=== PATIENT | male | born 1960 | race Caucasian/White ===

== ENCOUNTER → 2017-06-27 | Outpatient (CLI) | payer OTHER ==
[~2017-06-27] MED LIST: IOPAMIDOL (ISOVUE 370) 100 ML BTL IV ONE
== END ==
LOC: FIMAGING 08:48
PROVIDERS: ATTEND Internal Medicine Cardiovascular Disease
DX: I71.2 Thoracic aortic aneurysm, without rupture (principal); I48.91 Unspecified atrial fibrillation; Q23.1 Congenital insufficiency of aortic valve
CPT/HCPCS: Q9967

== ENCOUNTER 2018-04-02 11:14 | Inpatient (IN) | payer OTHER ==
[2018-04-02] MEDS ORDERED: ASPIRIN EC 325 MG TAB PO ONE ×2 (11:20→12:09)
[2018-04-02] MEDS ORDERED: NS 1,000 ML IV ONE (11:20)
[2018-04-02] MEDS ORDERED: diphenhydrAMINE 25 MG CAP PO ONE ×2 (11:20→12:09)
[2018-04-02] MEDS ORDERED: DIAZEPAM 5 MG TAB PO ONE (11:20)
[2018-04-02] MEDS ORDERED: FAMOTIDINE 20 MG TAB PO ONE (11:20)
[2018-04-02] MEDS ORDERED: fentaNYL 100 MCG/2 ML INJ ONE (12:01)
[2018-04-02] MEDS ORDERED: LIDOCAINE 1% 300 MG/30 ML SDV ONE (12:01)
[2018-04-02] MEDS ORDERED: MIDAZOLAM 2 MG/2 ML VIAL ONE (12:02)
[2018-04-02] MEDS ORDERED: IOPAMIDOL (ISOVUE-370) 150 ML BTL IV ONE (12:02)
[2018-04-02] MEDS ORDERED: FAMOTIDINE 20 MG TAB ONE (12:09)
[2018-04-02] MEDS ORDERED: DIAZEPAM 5 MG TAB ONE (12:09)
--- NOTE | 2018-04-02 12:25 | PDGENHP ---
History and Physical - Chief Complaint preop open heart surgery - History of Present Illness 57 yo male with lifestyle limiting atrial fibrillation, a BAV, moderate AI/, and an aneurysmal ascending aorta, admitted in advance of Hernandez-Maze IV with AVR, and asc ao replacement to complete surgical risk stratification. Notes increasing burden of AF refractory to catheter based ablations, electrical cardioversions and antiarrhythmic therapy with onset of fatigue and exertional dyspnea over the past few year. Ablations seemingly compl by PVCs. Can no longer exercise and has had to modify his pace to complete ADLs. Prone to "cankles". No CPs, wt gain > 5 lbs, abd discomfort, PND, orthopnea or presyncope. Chronically anticoagulated on Coumadin for burden of AF ([id number] score of 0 ). Stopped coumadin on 03/27 and has been on lovenox bridge. History Information - Allergies/Home Medication List Allergies/Adverse Reactions: No Known Allergies Allergy (Verified 02/08/18 11:50) Home Medications: Atorvastatin Calcium [Lipitor 20 mg (*)] 20 mg PO DAILY 02/08/18 [Last Taken 03/12 08:00] Herbals/Supplements -Info Only 1 ea PO DAILY 03/27/18 [Last Taken 03/29/18 08:00 ] Sotalol HCl [Betapace 80 MG (*)] 80 mg PO BID 03/27/18 [Last Taken 04/02/18 08: 00] Warfarin Sodium [Coumadin 2.5MG (*)] 2.5 mg PO MOWEFRSA 03/27/18 [Last Taken 09/09 08:00] Warfarin Sodium [Coumadin 5MG (*)] 5 mg PO SUTUTH 03/27/18 [Last Taken 03/26/18 08:00] Lovenox 100 MG (*) 100 mg PO BID 04/02/18 [Last Taken 04/01/18 08:00] I have personally reviewed and updated: medical history, social history, surgical history - Past Medical History Additional medical history: chronic sinusitis - Surgical History Reports: ablation (x2) - Social History Smoking Status: Former smoker Review of Systems Review of Systems: Constitutional: Reports: recent illness (sinus flare treated with clarithromycin ) EENMT: Reports: no symptoms Cardiac: Reports: no symptoms (at rest) Respiratory: Reports: no symptoms (at rest) Gastrointestinal: Reports: other (no difficulty swallowing pills) Genitourinary: Reports: no symptoms Muscolosketal: Reports: no symptoms Skin: Reports: no symptoms Neurological: Reports: no symptoms Hematologic/Lymphatic: Reports: no symptoms Physical Exam Physical Exam: Constitutional: no apparent distress, appears nourished Eyes: anicteric sclera, other (PER) Ears, Nose, Mouth, Throat: moist mucous membranes, hearing normal, other (no visible dental disrepair) Cardiovascular: systolic murmur (faint ), irregularly irregular, edema (trace dependent) Peripheral Pulses: 2+: dorsalis-pedis (R), dorsalis-pedis (L) Respiratory: no respiratory distress, clear to auscultation Gastrointestinal: normoactive bowel sounds, soft, non-tender abdomen Genitourinary: no bladder fullness Skin: warm, normal color, no rashes or abrasions Musculoskeletal: other (symmetric tone) Neurologic: AAOx3 Psychiatric: interacting appropriately, not anxious Lab Data & Imaging Review 04/02/18 11:20 04/02/18 12:00 Type and screen, HgbA1c pending Imaging Review: CTA Jun 2017: Nl heart size, no pulm nodules or lymphadenopathy, 3.5 cm ao root , 4.5 cm ascending aorta maximally dilated at level of PA, no arch vessel involvement Visualized and Interpreted EKG results: Yes EKG Interpretation: Positive for: other (AF 60s) Assessment & Plan Assessment: Longstanding persistent atrial fibrillation Chronic anticoagulation BAV with moderate /AI and aneurysmal asc aorta Plan: Left and right heart cath Cardiac surgery in am Consents after new data reviewed
[2018-04-02 12:48] LABS: INR 1.11 (0.83-1.16); PROTIME(PATIENT) 14.5 SEC (12.0-15.0)
[2018-04-02 12:53] LABS: PLATELET COUNT 167 10^3/uL (150-400)
--- NOTE | 2018-04-02 13:36 | PDHPUP ---
History & Physical Update H&P update statement: This history and physical update is based on an assessment of the patient which was completed after admission or registration (within 24 hours), but prior to the surgery/procedure. H&P update: H&P reviewed & patient examined, no change in patient's condition since H&P completed
--- NOTE | 2018-04-02 13:36 | PDPROPOC ---
Sedation Plan of Care Sedation Plan of Care: mental status noted, patient educated of risks, benefits , alternatives, patient can tolerate sedation ASA Classification: ASA 2 Planned drugs: fentanyl, midazolam Mallampati Score: Class 2 Mallampati Reference Image: Patient passed 3-3-2 rule?: Yes
[2018-04-02] MEDS ORDERED: HYDROCODONE/APAP 5/325 TAB PO PRN (14:24)
[2018-04-02] MEDS ORDERED: OXYCODONE/APAP 5/325 TAB PO PRN (14:24)
[2018-04-02] MEDS ORDERED: ATROPINE SULFATE 1 MG/10 ML SYR IVP PRN (14:24)
[2018-04-02] MEDS ORDERED: NITROGLYCERIN 0.4 MG BTL SL PRN (14:24)
[2018-04-02] MEDS ORDERED: ONDANSETRON 4 MG/2 ML VIAL IVP PRN (14:24)
--- NOTE | 2018-04-02 15:18 | CPIP ---
DATE OF PROCEDURE: 04/02/2018 INDICATION FOR PROCEDURE: Preoperative catheterization. PROCEDURE: 1. Nonselective right groin sheathogram. 2. 7-Somali sheath right femoral vein. 3. Right heart catheterization with a [place] catheter. 4. Bilateral selective coronary angiography. HISTORY: This is a 57-year-old male with a history of dilated aortic root and bicuspid aortic valve. The patient is scheduled for surgical repair with Dr. Strong on 04/03/2018. The patient presents to [facility] for preoperative cardiac catheterization. DESCRIPTION OF PROCEDURE: After informed consent, he was brought to [facility]. The right groin was preppe d and draped in sterile fashion. Using lidocaine, a short 6-Somali sheath was introduced in the [facility] t common femoral artery, a 7-Somali sheath was introduced in the right common femoral vein. [place] catheter was advanced. Wedge pressure was mean of 17, A-wave ____18 with V-wave 21, PA pressure s ystolic 45, diastolic 23, mean of 33, RV pressure is 50, diastolic 2, end of 12, RA pressure was mean of 12, V-wave 14, cardiac output was measured to be 6.0 by Javier with a cardiac index 2.7. AO sat wa s 96%. PA sat was 72%. At this time, the [place]-Yelena catheter was removed. The JL4 catheter was adva nced to the left coronary artery. Images of the left coronary artery revealed normal left main and l eft circumflex. There was a ramus intermedius which was small to medium. Left circumflex artery had an AV groove circ, and terminated to a bifurcating marginal artery which was healthy and free of dis ease. The LAD was a long vessel which wrapped around the apex. The LAD gave off small diagonal juana lonnie in the midbody, which were healthy and free of disease. The LAD itself was healthy and free of disease. After the images were obtained, the JL4 catheter was removed. The JR4 catheter was advance d to the right coronary artery. Images of the right coronary artery revealed normal ostia of the RCA , normal os prox, RPDA and RPLUS. After these images were obtained, the JR4 catheter was removed. T he right groin was closed with manual pressure. Patient tolerated the procedure well with no complic ations. IMPRESSION: 1. Essentially normal coronary arteries. 2. Mild pulmonary hypertension. 3. Normal cardiac output. PLAN: The patient will be admitted to the [facility] Surgery Service for open heart surgery within the next 24 hours. /[id number]/MODL
--- NOTE | 2018-04-02 15:45 | PDMN ---
Medical Necessity Medical necessity: Pt meets inpt criteria per MD order and [facility] S-290, Cardiac Valve Replacement or Repair, CPT 02465, 5 days, [facility] inpt only list and [facility] S- 140, Aortic Aneurysm, Thoracic, Repair with Graft, CPT 50759, [facility] inpt only list. 57 y/o w/hx longstanding persistent afib, BAV w/mod /AI and aneurysmal asc aorta admitted for heart cath today prior to planned cardiac surg above tomorrow AM, anticipate>2MN for cardiac surgeries/post-op care.
--- NOTE | 2018-04-02 16:44 | CPEKG ---
Test Reason : OPEN Blood Pressure : / mmHG Vent. Rate : 066 BPM Atrial Rate : 000 BPM P-R Int : 064 ms QRS Dur : 095 ms QT Int : 475 ms P-R-T Axes : 000 024 016 degrees QTc Int : 498 ms Atrial fibrillation Ventricular premature complex Atrial fibrillation is new in comparison to prior ECG Confirmed by Giancarlo Sky ([id number]) on 04/02/2018 4:43:31 PM Referred By: Confirmed By:Giancarlo Sky
[2018-04-02] MEDS ORDERED: hydrALAZINE 20 MG/ML VIAL IVP PRN (18:45)
[2018-04-02] MEDS: HEPARIN 5,000 UNIT/0.5 ML INJ SC SCH (20:54)
[2018-04-02] MEDS: SENNOSIDES/DOCUSATE SODIUM TAB PO SCH (20:54)
[2018-04-02] MEDS: SOTALOL HCL 80 MG TAB PO SCH (20:54)
[2018-04-02] MEDS ORDERED: CHLORHEXIDINE GLUC HIBICLENS 118 ML BTL TP SCH (21:00)
[2018-04-02] MEDS: MUPIROCIN 2% 22 GM OINT NS SCH (21:40)
[2018-04-03 04:20] LABS: INR 1.15 (0.83-1.16); PROTIME(PATIENT) 14.9 SEC (12.0-15.0)
[2018-04-03] MEDS ORDERED: AMINOCAPROIC ACID 5 GM/20 ML VIAL IV ONE (06:00)
[2018-04-03] MEDS ORDERED: NOREPINEPHRINE BITARTRATE 16 MG in NS 250 ML IV ONE (06:00)
[2018-04-03] MEDS ORDERED: PHENYLEPHRINE HCL 50 MG in NS 250 ML IV ONE (06:00)
[2018-04-03] MEDS ORDERED: ceFAZolin 2 GM/DEXTROSE 100 ML IV ONE (06:00)
[2018-04-03] MEDS ORDERED: SODIUM BICARBONATE 20 MEQ, LIDOCAINE 1% 10 ML in NORMOSOL-R 1,000 ML MISC ONE (06:00)
[2018-04-03] MEDS ORDERED: INSULIN REGULAR HUMAN 100 UNIT in NS 100 ML IV ONE (06:00)
[2018-04-03] MEDS ORDERED: niCARdipine/NACL 200 ML IV ONE (06:00)
[2018-04-03] MEDS ORDERED: CITRATE DEXTROSE SOLN 500 ML BAG MISC ONE (06:00)
[2018-04-03] MEDS ORDERED: MANNITOL 25% 12.5 GM/50 ML VIAL IVP ONE (06:00)
[2018-04-03] MEDS: MUPIROCIN 2% 22 GM OINT NS SCH ×2 (06:11→21:14)
[2018-04-03] MEDS ORDERED: LR 1,000 ML IV ONE (06:12)
[2018-04-03] MEDS ORDERED: PROTAMINE SULFATE 50 MG/5 ML VIAL IVP ONE (06:48)
[2018-04-03] MEDS ORDERED: MILRINONE/DEXTROSE/100 ML BAG IV ONE (06:48)
[2018-04-03] MEDS ORDERED: CALCIUM CHLORIDE 1 GM/10 ML INJ ONE ×3 (06:48→06:50)
[2018-04-03] MEDS ORDERED: HEPARIN 10,000 UNIT/10 ML MDV (1,000 UNIT/ML) ONE ×2 (06:49→06:51)
[2018-04-03] MEDS ORDERED: DOPamine/DEXTROSE 400 MG/250 ML BAG IV ONE (06:49)
[2018-04-03] MEDS ORDERED: AMIODARONE HCL 150 MG/3 ML VIAL ONE ×2 (06:49→06:51)
[2018-04-03] MEDS ORDERED: niCARdipine/NACL/200 ML BAG IV ONE (06:49)
[2018-04-03] MEDS ORDERED: NA BICARBONATE 50 MEQ/50 ML VIAL ONE (06:49)
[2018-04-03] MEDS ORDERED: ADENOSINE 6 MG/2 ML VIAL ONE (06:49)
[2018-04-03] MEDS ORDERED: ceFAZolin 1 GM VIAL ONE (06:50)
[2018-04-03] MEDS ORDERED: NITROGLYCERIN/D5W 50 MG/250 ML BOTTLE IV ONE (06:50)
[2018-04-03] MEDS ORDERED: LIDOCAINE 2% 100 MG/5 ML SYR ONE (06:50)
[2018-04-03] MEDS ORDERED: ALBUMIN 5% 250 ML BOTTLE IV ONE ×2 (06:50→10:27)
[2018-04-03] MEDS ORDERED: CITRATE DEXTROSE SOLN 500 ML BAG ONE (06:51)
[2018-04-03] MEDS ORDERED: MAGNESIUM SULFATE 1 GM/2 ML VIAL ONE (06:51)
[2018-04-03] MEDS ORDERED: methylPREDNISolone SOD SUCC 1 GM/8 ML VIAL ONE (06:51)
[2018-04-03] MEDS ORDERED: MIDAZOLAM 2 MG/2 ML VIAL IVP ONE (06:53)
[2018-04-03] MEDS ORDERED: MINERAL OIL 10 ML VIAL ONE (06:59)
--- NOTE | 2018-04-03 07:01 | PDANEPAE ---
ANE History of Present Illness maze,avr, asc aortic aneurysm ANE Past Medical History - Cardiovascular History Hx Hypertension: No Hx Arrhythmias: Yes Hx Chest Pain: No Hx Coronary Artery / Peripheral Vascular Disease: No Hx CHF / Valvular Disease: Yes Hx Palpitations: No Cardiovascular History Comment: aorta aneurysm. afib. bicuspid aortic valve. hx of cardioversions x2. hx of cardiac ablations x2. followed by [facility] - Pulmonary History Hx COPD: No Hx Asthma/Reactive Airway Disease: No Hx Recent Upper Respiratory Infection: No Hx Oxygen in Use at Home: No Hx Sleep Apnea: Yes Sleep Apnea Screening Result - Last Documented: Positive Pulmonary History Comment: donal positive uses cpap- instructed pt to bring to hospital - Neurologic History Hx Cerebrovascular Accident: No Hx Seizures: No Hx Dementia: No - Endocrine History Hx Diabetes: No Hypothyroid: No Hyperthyroid: No Obesity: mild - Renal History Hx Renal Disorders: No - Liver History Hx Hepatic Disorders: No - Neurological & Psychiatric Hx Hx Neurological and Psychiatric Disorders: No - Cancer History Hx Cancer: Yes Cancer History Comment: testicular ca- removal of testicle 8 weeks of radiation 2002 - Congenital Disorder History Hx Congenital Disorders: No - GI History Hx Gastrointestinal Disorders: No - Other Health History Other Health History: wears glasses - Chronic Pain History Chronic Pain: No - Surgical History Prior Surgeries: cardioversion x2- last being 09/17/13. right ankle surgery. bilateral RTC repairs. cardiac ablations x2. bilateral bunionectomies. testicle removed d/t ca 2002 ANE Review of Systems Review of Systems: - Exercise capacity Exercise capacity: >=4 METS METS (RN): 4 METS ANE Patient History - Allergies Allergies/Adverse Reactions: No Known Allergies Allergy (Verified 02/08/18 11:50) - Home Medications Home medications: home medication list seen and reviewed Home Medications: Atorvastatin Calcium [Lipitor 20 mg (*)] 20 mg PO DAILY 02/08/18 [Last Taken 03/12 08:00] Herbals/Supplements -Info Only 1 ea PO DAILY 03/27/18 [Last Taken 03/29/18 08:00 ] Sotalol HCl [Betapace 80 MG (*)] 80 mg PO BID 03/27/18 [Last Taken 04/02/18 08: 00] Warfarin Sodium [Coumadin 2.5MG (*)] 2.5 mg PO MOWEFRSA 03/27/18 [Last Taken 09/09 08:00] Warfarin Sodium [Coumadin 5MG (*)] 5 mg PO SUTUTH 03/27/18 [Last Taken 03/26/18 08:00] Enoxaparin [Lovenox 100 MG (*)] 100 mg SQ Q12H 04/02/18 [Last Taken 04/01/18 08: 00] - NPO status NPO Status: no food or drink >8 hours NPO Since - Liquids (Date): 04/03/18 NPO Since - Liquids (Time): 00:00 NPO Since - Solids (Date): 04/03/18 NPO Since - Solids (Time): 00:00 - Smoking Hx Smoking Status: Never smoked - Family Anes Hx Family Hx Anesthesia Complications: none ANE Labs/Vital Signs - Labs Result Diagrams: 04/02/18 11:20 04/03/18 03:11 - Vital Signs Blood Pressure: 142/94 Heart Rate: 71 Respiratory Rate: 16 O2 Sat (%): 95 Height: 177.8 cm Weight: 103.7 kg ANE Physical Exam - Airway Mallampati Score: Class 2 Mouth exam: normal dental/mouth exam - Pulmonary Pulmonary: no respiratory distress - Cardiovascular Cardiovascular: regular rate and rhythym - ASA Status ASA Status: III ANE Anesthesia Plan Anesthesia Plan: general endotracheal anesthesia Lines/Monitors: arterial line, central line, MARSHALL
[2018-04-03] MEDS ORDERED: SUCCINYLCHOLINE CHLORIDE 200 MG/10 ML SYR IVP ONE (07:06)
[2018-04-03] MEDS ORDERED: EPINEPHrine 1 MG/ML INJ ONE (07:06)
[2018-04-03] MEDS ORDERED: ROCURONIUM 100 MG/10 ML VIAL ONE (07:06)
[2018-04-03] MEDS ORDERED: PHENYLEPHRINE 10 MG/ML SDV ONE (07:06)
[2018-04-03] MEDS ORDERED: LIDOCAINE 2% 2 ML INJ ONE ×3 (07:07)
[2018-04-03] MEDS ORDERED: fentaNYL 250 MCG/5 ML INJ ONE ×2 (07:08)
[2018-04-03] MEDS ORDERED: PROPOFOL 200 MG/20 ML VIAL ONE (07:08)
[2018-04-03] MEDS ORDERED: MIDAZOLAM 2 MG/2 ML VIAL ONE (07:19)
[2018-04-03] MEDS ORDERED: DEXMEDETOMIDINE HCL 400 MCG in NS 100 ML IV SCH (09:00)
[2018-04-03] MEDS ORDERED: ROCURONIUM 50 MG/5 ML VIAL ONE (10:12)
[2018-04-03] MEDS: SENNOSIDES/DOCUSATE SODIUM TAB PO SCH ×2 (11:24→21:14)
[2018-04-03] MEDS: SOTALOL HCL 80 MG TAB PO SCH (11:25)
[2018-04-03] MEDS: HEPARIN 5,000 UNIT/0.5 ML INJ SC SCH (11:25)
[2018-04-03] MEDS ORDERED: CEPACOL LOZENGE PO PRN (12:50)
[2018-04-03] MEDS ORDERED: METOCLOPRAMIDE 10 MG/2 ML VIAL IVP PRN (12:50)
[2018-04-03] MEDS ORDERED: POTASSIUM Cl (KCl) 50 ML IV PRN (12:50)
[2018-04-03] MEDS ORDERED: ACETAMINOPHEN 650 MG SUPP PR PRN (12:50)
[2018-04-03] MEDS ORDERED: ONDANSETRON 4 MG/2 ML VIAL IVP PRN (12:50)
[2018-04-03] MEDS ORDERED: MEPERIDINE 25 MG/0.5 ML AMP IVP PRN (12:50)
[2018-04-03] MEDS ORDERED: LACTULOSE 20 GM/30 ML UDCUP PO PRN (12:50)
[2018-04-03] MEDS ORDERED: ONDANSETRON DISINTEGRATING 4 MG TAB PO PRN (12:50)
[2018-04-03] MEDS ORDERED: MAGNESIUM HYDROXIDE 30 ML UDCUP PO PRN (12:50)
[2018-04-03] MEDS ORDERED: PANTOPRAZOLE SODIUM 40 MG VIAL IVP ONE (12:50)
[2018-04-03] MEDS ORDERED: POLYETHYLENE GLYCOL 3350 17 GM PKT PO PRN (12:50)
[2018-04-03] MEDS ORDERED: D50W 25 GM/50 ML SYR IVP PRN (12:50)
[2018-04-03] MEDS ORDERED: BISACODYL 10 MG SUPP PR PRN (12:50)
[2018-04-03] MEDS ORDERED: fentaNYL 100 MCG/2 ML INJ IVP PRN (12:50)
[2018-04-03] MEDS ORDERED: SODIUM CL NASAL 45 ML BTL EACHNARE PRN (12:50)
[2018-04-03] MEDS ORDERED: NS 1,000 ML IV SCH (13:00)
[2018-04-03] MEDS ORDERED: niCARdipine/NACL 200 ML IV SCH (13:00)
[2018-04-03] MEDS ORDERED: NALOXONE HCL 0.4 MG/ML INJ IVP PRN (13:09)
--- NOTE | 2018-04-03 13:09 | POSTANESTH ---
Post Anesthetic Evaluation Cardiovascular Status: Normal, Stable, Tx Hyper/Hypo-tension Respiratory Status: Other, See Comment (stable on vent) Level of Consciousness/Mental Status: Mildly Sleepy, Arousable, Other, See Comment (sedated with precedex) Pain Control: Adequate, Prn Tx Ordered Nausea/Vomiting Control: Adequate, Prn Tx Ordered Complications Possibly Related to Anesthesia: None Noted
[2018-04-03] MEDS: ALBUMIN 5% 250 ML IV PRN ×4 (13:38→14:46)
[2018-04-03] MEDS: ceFAZolin 2 GM/DEXTROSE 100 ML IV SCH ×2 (14:40→21:14)
[2018-04-03] MEDS: INSULIN REGULAR HUMAN 100 UNIT in NS 100 ML IV SCH ×2 (15:00→20:45)
--- NOTE | 2018-04-03 15:28 | GOP ---
DATE OF OPERATION: 04/03/2018 SURGEON: Mike Strong DO SALES DIRECTOR: Sang. ANESTHESIOLOGIST: Nabeel. PREOPERATIVE DIAGNOSIS: 1. Moderate aortic stenosis. 2. Ascending aortic aneurysm. 3. Long-standing persistent atrial fibrillation. POSTOPERATIVE DIAGNOSIS: 1. Moderate aortic stenosis. 2. Ascending aortic aneurysm. 3. Long-standing persistent atrial fibrillation. PROCEDURE PERFORMED: 1. Hernandez-Maze 4 with biatrial lesions performed with sensing and testing with atrial clip application to the left atrial appendage. 2. Aortic valve replacement with #23 Inspiris bioprosthesis. 3. Replace ascending aorta with a 24 Hemashield graft. FINDINGS: DESCRIPTION OF PROCEDURE: The patient was brought to the operating room, intubated. Monitoring line s were placed. He was prepped and draped in sterile classical manner. Time-out was confirmed with [facility] team. Intraoperative MARSHALL confirmed preoperative findings. A sternotomy was performed. He was heparinized, cannulated in the transverse arch and bicaval cannul as with tapes. We then placed a retrograde catheter and an antegrade cardioplegic catheter. We then dissected the fat off the interatrial groove on the right pulmonary venous system down to bare muscl e. We then performed sensing. The patient had both entrance and exit block in both pulmonary veins. Despite this, we encircled the right pulmonary vein and did 3 lesion sets overlapping with multiple ablations per lesion set, with the final of those sets being 5 seconds or less. We then retested an d again confirmed entrance and exit block. The patient had been cardioverted to sinus prior to that it should be noted. We then went on cardiopulmonary bypass and encircled the left pulmonary veins and repeated the same p rocedure. Patient was noted to have entrance and exit block both before and after multiple ablations . We then marked the terminus of the circ and right coronaries in the coronary sinus for later cryoa blation. We then arrested the heart, excised the tip of the left atrial appendage and placed the rad iofrequency catheter across into the right superior pulmonary vein with multiple lesion sets less heather n 5 seconds performed. We then placed an atrial clip across the base of the appendage and proceeded with opening the left at rium through the right superior pulmonary vein. I extended the incisions almost completely over to t left side and completed those roof and floor lesions with radiofrequency overlapping the left PVI. I then performed cryo externally and internally across the coronary sinus and isthmus of the mitral valve overlapping them perfectly with 3 minutes each. I then closed the left atrium, put the LV sump in. I then excised the ascending aorta from sinotubul ar junction to the right innominate artery at the base of the clamp. It was a true bicuspid valve. It was excised. It was debrided. We then sized him for a 23 Inspiris valve, which was sutured with interrupted 2-0 Tycron pledgeted mattress sutures utilizing Cor-Knots. We then sutured a 24 mm Hemas hield graft both distally and proximally with a continuous running 3-0 Prolene, reinforced in several sites, as well as external BioGlue with the suction off. I then put an aortic vent back into the gr aft and administered antegrade cardioplegia with no evidence of leak on the anastomoses. Rewarming h ad been begun. Patient was then placed in Trendelenburg. Cross-clamp was removed with suction on the ascending and LV vent. Meanwhile, we secured cable tapes and perform all radiofrequency lesion sets on the right a trium and an isthmus lesion with cryo at 2 o'clock. The right atrium was closed in standard fashion. Caval tapes were removed. The patient was then weaned after air was removed from bypass without di fficulty. Intraoperative MARSHALL revealed good valvular function without any regurgitation. Biventricul ar function was well preserved. The heparin was reversed with protamine. The cannula was removed while heparin was being administere d and was found to have clot on the end of the aortic cannula. This was hard to explain since there should have been no retrograde blood back into the aortic cannula since it was clamped at the pump. Hemostasis was obtained. The pericardium and thymic fat were closed with 2 ventricular pacing wires and 2 mediastinal drains. The sternum was closed in standard fashion. The patient was returned to ICU where he awoke appropriately and was extubated briefly after re-arriv ing the ICU with good pedal pulses and no evidence of neuro deficit. /[id number]/MODL
[2018-04-03] MEDS: NOREPINEPHRINE BITARTRATE 16 MG in NS 250 ML IV SCH ×2 (15:30→20:46)
[2018-04-03] MEDS ORDERED: NOREPINEPHRINE/NS 500 ML IV SCH (16:00)
--- NOTE | 2018-04-03 17:15 | GCON ---
PULMONARY/CRITICAL CARE CONSULTATION. DATE OF CONSULTATION: 04/03/2018 REFERRING PHYSICIAN: Mike Strong DO REASON FOR REFERRAL: Evaluation and management of postoperative respiratory failure and obstructive sleep apnea. HISTORY: The patient is a 57-year-old male with a history of sleep apnea treated with CPAP, as well as chronic atrial fibrillation, and bicuspid aortic valve who is referred to Dr. Strong for considerat ion of Maze procedure, as well as replacement of the aortic valve and his dilated ascending aorta. Ashely edmonds underwent the procedure today and his intraoperative course was unremarkable. He has remained intu bated postoperatively, in part due to variable blood pressure that has been addressed with increasing the heart rate on his pacemaker, as well as norepinephrine, which is currently being titrated down. PAST MEDICAL HISTORY: Obstructive sleep apnea. The patient had a home sleep test in 2014, which courtney wed an apnea-hypopnea index of 6.4. He has been treated with CPAP since then, apparently at a pressu re of 7 cm of water. He is followed at the [facility]. He reports excellent complianc e with CPAP HOME MEDICATIONS: Atorvastatin, sotalol, warfarin, Lovenox. ALLERGIES: None. SOCIAL HISTORY: The patient is a former smoker. FAMILY HISTORY: Unremarkable. REVIEW OF SYSTEMS: A 10-point review of systems is unobtainable as the patient is intubated. PHYSICAL EXAMINATION: GENERAL: The patient is sedated, but awakes to voice and follows simple comma nds. VITAL SIGNS: Blood pressure is 103/71, with a heart rate of 94. He is afebrile. Oxygen satur ations are 100% on CPAP at 40% oxygen. HEENT: Normocephalic and atraumatic. No icterus. NECK: No JVD. Trachea is midline. CHEST: Clear to auscultation. CARDIAC: Regular rate and rhythm without murmur. ABDOMEN: Soft, nontender. Bowel sounds are present. EXTREMITIES: No clubbing, cyanosis, or edema. NEURO: The patient is sleepy, but arousable and follows simple commands. He has no fredis s motor or sensory deficits. LABORATORY/IMAGING: Chemistry group is unremarkable. CBC is normal. Postoperative chest x-ray shows some cardiomegaly and mild atelectasis. Images were reviewed by me. ASSESSMENT: 1. Status post open heart surgery with aortic valve replacement, aortic root replacement, and a maze procedure. He has doing well postoperatively with improved blood pressure after his pacemaker was i ncreased. His norepinephrine is being titrated down. 2. Postoperative respiratory failure. The patient is doing well now with good oxygenation on 40% ox ygen. 3. Obstructive sleep apnea. This is mild. The patient is treated with CPAP, which he brought to [facility]. 4. Atrial fibrillation. The patient is currently in a paced rhythm. RECOMMENDATION: 1. Follow blood sugars. I do not anticipate these will be elevated significantly given the absence of diabetes preoperatively. 2. Extubate once the patient is more awake and hemodynamically stable. 3. Use CPAP with sleep once the patient is extubated. /[id number]/MODL
[2018-04-03] MEDS: KETOROLAC 30 MG/1 ML SDV IVP SCH (20:29)
[2018-04-04] MEDS: KETOROLAC 30 MG/1 ML SDV IVP SCH ×2 (01:39→08:34)
[2018-04-04 04:25] LABS: PLATELET COUNT 75 10^3/uL (150-400)
[2018-04-04 04:52] LABS: INR 1.4 (0.83-1.16); PROTIME(PATIENT) 17.3 SEC (12.0-15.0)
[2018-04-04] MEDS: ceFAZolin 2 GM/DEXTROSE 100 ML IV SCH ×3 (05:58→22:34)
[2018-04-04] MEDS ORDERED: HEPARIN 5,000 UNIT/0.5 ML INJ SC SCH (06:00)
--- NOTE | 2018-04-04 07:09 | SOAPPROG ---
SOAP Progress Note Assessment/Plan: POD #1: AVR with #23 Inspiris Resilia bioprosthesis, ascending aorta replacement with #23 Hemashield graft, Hernandez-Maze IV with AtriClip exclusion of LEYDI Moderate /AI/BAV with asc ao aneurysm s/p AVR/asc ao replacement - ASA for AV thromboprophylaxis - AL/FC out, CT to bulb suction Long standing persistent atrial fibrillation s/p CM 4 - JR in 40s, continue CROP PICKER at 90 - Will restart Coumadin for thromboprophylaxis - Sotalol to be discontinued Acute blood loss anemia with coagulopathy - Stable s/p 1U platelet, 1U PRBC - Monitor DVT prophylaxis - Heparin SQ until INR therapeutic/SCDs Subjective: Pain well-controlled. Denies SOB. Objective: Vital Signs Temp Pulse Resp BP Pulse Ox 37.1 C 90 12 103/63 96 04/04/18 04:00 04/04/18 06:00 04/04/18 06:00 04/04/18 06:00 04/04/18 06:00 Laboratory Results 04/04/18 04:00 04/04/18 04:00 04/03/18 04/04/18 04/05/18 05:59 05:59 05:59 Intake Total 1450 2050 Output Total 350 1585 Balance 1100 465 PT 17.3 SEC (12.0-15.0) H 04/04/18 04:00 INR 1.40 (0.83-1.16) H 04/04/18 04:00 Physical Exam - Physical Exam General Appearance: WD/WN, alert, no apparent distress EENT: No scleral icterus (R), No scleral icterus (L) Neck: normal inspection Respiratory: No respiratory distress Cardiac/Chest: bradycardia Peripheral Pulses: 2+: dorsalis-pedis (R), dorsalis-pedis (L) Abdomen: non-tender, soft, No distended Skin: normal color, warm/dry Extremities: No pedal edema Neuro/Psych: no motor/sensory deficits, alert, normal mood/affect, oriented x 3 , No aphasia, No facial droop, No motor weakness, No sensory deficit, No cognition abnormalities, No speech abnormalities ICD10 Worksheet Patient Problems: Problems Problem Status Onset Acute blood loss anemia Acute S/P aortic aneurysm repair Acute S/P aortic valve replacement Acute Status post ablation of atrial fibrillation Acute Aortic valve stenosis with insufficiency Chronic Ascending aortic aneurysm Chronic Bicuspid aortic valve Chronic Chronic anticoagulation Chronic Atrial fibrillation and flutter Chronic
[2018-04-04] MEDS: ASPIRIN 81 MG CHEWABLE TAB PO SCH (08:34)
[2018-04-04] MEDS: PANTOPRAZOLE SODIUM 40 MG TAB PO SCH (08:34)
[2018-04-04] MEDS: MUPIROCIN 2% 22 GM OINT NS SCH ×2 (08:35→22:39)
[2018-04-04] MEDS: SENNOSIDES/DOCUSATE SODIUM TAB PO SCH ×2 (08:35→20:45)
[2018-04-04] MEDS: ACETAMINOPHEN 325 MG TAB PO PRN ×2 (10:52→18:37)
--- NOTE | 2018-04-04 11:40 | ASMTCMCOM ---
CM Note CM Note Notes: Pt is a 57 y/o man admitted for an open heart surgery w/ Dr. Strong. Therapies have been ordered and awaiting recommendations. Pulmonology have been consulted. Needs are TBD at this time. CM to follow. Plan: TBD Date Signed: 04/04/2018 11:39 AM Electronically Signed By:SHELLY Berkowitz
[2018-04-04] MEDS: KETOROLAC 30 MG/1 ML SDV IVP PRN ×2 (14:31→20:45)
[2018-04-04] MEDS ORDERED: ALBUMIN 5% 250 ML IV ONE (17:00)
[2018-04-05] MEDS: ACETAMINOPHEN 325 MG TAB PO PRN ×2 (02:11→09:40)
[2018-04-05] MEDS: KETOROLAC 30 MG/1 ML SDV IVP PRN ×2 (05:31→12:20)
[2018-04-05] MEDS: ceFAZolin 2 GM/DEXTROSE 100 ML IV SCH (05:39)
[2018-04-05 06:09] LABS: INR 1.3 (0.83-1.16); PROTIME(PATIENT) 16.4 SEC (12.0-15.0)
--- NOTE | 2018-04-05 06:42 | SOAPPROG ---
SOAP Progress Note Assessment/Plan: POD #2: AVR with #23 Inspiris Resilia bioprosthesis, ascending aorta replacement with #23 Hemashield graft, Hernandez-Maze IV with AtriClip exclusion of LEYDI Moderate /AI/BAV with asc ao aneurysm s/p AVR/asc ao replacement - ASA for AV thromboprophylaxis - AL/FC out, CT to bulb suction for another day - Post-op ECHO today Long standing persistent atrial fibrillation s/p CM 4 - JR in 40s, continue RN GASTROENTEROLOGY at 80 - Will restart Coumadin for thromboprophylaxis - Sotalol discontinued - BB/amiodarone as tolerated Acute blood loss anemia with coagulopathy, thrombocytopenia - Stable s/p 1U platelet, 1U PRBC - Monitor DVT prophylaxis - Heparin SQ (held for platelets < 100) until INR therapeutic/SCDs Subjective: Denies pain/SOB. Lightheaded when BP dips. Objective: Vital Signs Temp Pulse Resp BP Pulse Ox 36.9 C 80 13 101/61 95 04/05/18 04:00 04/05/18 04:00 04/05/18 04:00 04/05/18 04:00 04/05/18 04:00 Laboratory Results 04/05/18 05:40 04/05/18 05:40 04/04/18 04/05/18 04/06/18 05:59 05:59 05:59 Intake Total 2050 1500 Output Total 1585 1010 Balance 465 490 PT 16.4 SEC (12.0-15.0) H 04/05/18 05:40 INR 1.30 (0.83-1.16) H 04/05/18 05:40 Physical Exam - Physical Exam General Appearance: WD/WN, alert, no apparent distress EENT: No scleral icterus (R), No scleral icterus (L) Neck: normal inspection Respiratory: No respiratory distress Cardiac/Chest: bradycardia Abdomen: non-tender, soft, No distended Skin: normal color, warm/dry Extremities: No pedal edema Neuro/Psych: no motor/sensory deficits, alert, normal mood/affect, oriented x 3 ICD10 Worksheet Patient Problems: Problems Problem Status Onset Acute blood loss anemia Acute S/P aortic aneurysm repair Acute S/P aortic valve replacement Acute Status post ablation of atrial fibrillation Acute Aortic valve stenosis with insufficiency Chronic Ascending aortic aneurysm Chronic Bicuspid aortic valve Chronic Chronic anticoagulation Chronic Atrial fibrillation and flutter Chronic
[2018-04-05] MEDS: ASPIRIN 81 MG CHEWABLE TAB PO SCH (09:04)
[2018-04-05] MEDS: SENNOSIDES/DOCUSATE SODIUM TAB PO SCH (09:04)
[2018-04-05] MEDS: PANTOPRAZOLE SODIUM 40 MG TAB PO SCH (09:04)
[2018-04-05] MEDS: MUPIROCIN 2% 22 GM OINT NS SCH (09:07)
--- NOTE | 2018-04-05 09:22 | CPEKG ---
Test Reason : OPEN Blood Pressure : / mmHG Vent. Rate : 057 BPM Atrial Rate : 057 BPM P-R Int : 063 ms QRS Dur : 090 ms QT Int : 468 ms P-R-T Axes : 096 049 -16 degrees QTc Int : 456 ms Sinus rhythm versus junctional Short WI interval Minimal ST depression, anterolateral leads No clear "p" waves are noted and rate is suggestive of junctional rhythm Confirmed by Giancarlo Sky ([id number]) on 04/05/2018 9:22:01 AM Referred By: Confirmed By:Giancarlo Sky
--- NOTE | 2018-04-05 09:35 | ASMTCMCOM ---
CM Note CM Note Notes: Therapies have cleared pt to d/c home independent without any needs. Pt will d/c when medically stable and follow up with outpatient cardiac rehab. No other needs at this time. CM available for changes. Araseli: Independent Date Signed: 04/05/2018 09:34 AM Electronically Signed By:SHELLY Berkowitz
--- NOTE | 2018-04-05 10:37 | ECHO ---
[email or web address] [address] [address] Main: [phone] Fax: Transthoracic Echocardiogram Name: JERMAINE DEL VALLE MR#: [id number] Study Date: 04/05/2018 Study Time: 09:33 AM Date of : 1960 Age: 57 year(s) Height: 177.8 cm (70 in.) Weight: 108.86 kg (240 lb.) BSA: 2.26 m2 Gender: Male Examination: Echo Indication: AVR with #23 Inspiris Resilia bioprosthesis Image Quality: Technically Difficult Contrast: Requested by: Marvel Domínguez BP: 103 mmHg/61 mmHg Heart Rate: Rhythm: Indication: AVR with #23 Inspiris Resilia bioprosthesis Procedure Staff Real Estate Specialist: Maite Hawthorne RD Reading Physician: Casey Argueta MD Requesting Provider: Conclusions: Very limited imaging post op. Inadequate imaging available and unable to obtain valve gradients. Measurements: Chambers Valvular Assessment AV/MV Valvular Assessment TV/PV Normal Normal Normal Name Value Range Name Value Range Name Value Range Continued Measurements: Findings: Aortic Valve: The aortic valve is a bioprosthesis. The #23 Inspiris Resilia bioprosthesis. Not well seen . Pericardium: No pericardial effusion. Exam Comments: Very limited imaging post op. Inadequate imaging available and unable to obtain valve gradients. (No Signature Object) Patient: JERMAINE DEL VALLE Study Date: 04/05/2018 Page 1 of 1 09:33 AM [id number]
[2018-04-05] MEDS ORDERED: WARFARIN SODIUM 2.5 MG TAB PO ONE (16:00)
[2018-04-05] MEDS: HYDROCODONE/APAP 5/325 TAB PO PRN ×2 (20:00→21:10)
[2018-04-05] MEDS ORDERED: SENNOSIDES/DOCUSATE SODIUM TAB PO PRN (21:00)
[2018-04-06] MEDS: HYDROCODONE/APAP 5/325 TAB PO PRN ×4 (02:24→22:04)
[2018-04-06 06:45] LABS: INR 1.24 (0.83-1.16); PROTIME(PATIENT) 15.8 SEC (12.0-15.0)
[2018-04-06] MEDS: KETOROLAC 30 MG/1 ML SDV IVP PRN (07:51)
[2018-04-06] MEDS: PANTOPRAZOLE SODIUM 40 MG TAB PO SCH (08:14)
[2018-04-06] MEDS: ASPIRIN 81 MG CHEWABLE TAB PO SCH (08:14)
[2018-04-06] MEDS ORDERED: FUROSEMIDE 20 MG/2 ML VIAL IVP ONE (09:02)
[2018-04-06] MEDS ORDERED: POTASSIUM CL 20 MEQ TAB PO ONE (09:02)
--- NOTE | 2018-04-06 09:02 | SOAPPROG ---
SOAP Progress Note Assessment/Plan: Assessment: POD#3 Hernandez-Maze IV with AtriClip exclusion of LEYDI, AVR #23 Inspiris Resilia bioprosthesis, asc aorta replacement #23 Hemashield graft Long standing persistent atrial fibrillation s/p CM 4 - Postop rhythm consistently junctional (30s-40s). - Vpacer dependent. May need PPM. - Sotalol discontinued. Antinodals avoided. - Antithrombotic prophylaxis with Coumadin, target INR 2-3, duration as per Maze protocol. BAV with moderate /AI and aneurysmal asc ao s/p AVR/asc ao replacement - Thromboprophylaxis with baby ASA. Adjunctive Coumadin as per Maze. - Ant mediastinal drain out. - Persistently low SBPs, responsive to IVFs. Postpump vasoplegia +/- loss atrial kick suspected. Bedside echo neg for pericard effusion. Acute expected blood loss anemia with thrombocytopenia and mild coagulopathy - Corrected with 1u PRBC, 1u Plt and 1u FFP. - No evidence active bleeding. Addtl transfusion prn hemodynamic support. - Care with VTE prophylaxis while platelets depressed. Transition to Coumadin in progress. Plan: Remove post mediastinal drain. Decr VVI backup to 60. Tx 1u PRBC for SBP < 90. Start gentle diuresis. Stop scheduled toradol and switch to prn ibuprofen. Cont coumadin 2.5 mg daily. Cont inc activity as tolerated. Dispo - Timing for home once need for PPM clearer. 04/06/18 09:00 Subjective: Doing ok. More comfortable after chest tube removed yest. Improving mobility and IS. No acute concerns. Objective: Vital Signs Temp Pulse Resp BP Pulse Ox 36.9 C 80 20 100/71 95 04/06/18 07:48 04/06/18 07:48 04/06/18 07:48 04/06/18 07:48 04/06/18 07:48 Laboratory Results 04/06/18 06:25 04/06/18 06:25 04/05/18 04/06/18 04/07/18 05:59 05:59 05:59 Intake Total 1500 550 Output Total 1010 1230 80 Balance 490 -680 -80 PT 15.8 SEC (12.0-15.0) H 04/06/18 06:25 INR 1.24 (0.83-1.16) H 04/06/18 06:25 Remains pacer dependent with underlying JR 30s-40s. Intermittent SBPs 80s seemingly well tolerated, less frequent after FR relaxed. Balanced I/Os. +6 kg overall. Addtl 0.6 kg gain/24h. CTOP at removal criteria. INR yet to rise. CBC likely dilutional. Physical Exam - Physical Exam General Appearance: alert, no apparent distress Respiratory: lungs clear, other (lavon to bulb suction, serosang drainage) Cardiac/Chest: regular rate, rhythm (paced), other (Sternotomy CDI. Vwires intact) Abdomen: non-tender, soft Skin: warm/dry Extremities: swelling (1+ gen) ICD10 Worksheet Patient Problems: Problems Problem Status Onset Acute blood loss anemia Acute S/P aortic aneurysm repair Acute S/P aortic valve replacement Acute Status post ablation of atrial fibrillation Acute Aortic valve stenosis with insufficiency Chronic Ascending aortic aneurysm Chronic Bicuspid aortic valve Chronic Chronic anticoagulation Chronic Atrial fibrillation and flutter Chronic
[2018-04-06] MEDS ORDERED: IBUPROFEN 600 MG TAB PO PRN (14:00)
[2018-04-06] MEDS ORDERED: WARFARIN SODIUM 2.5 MG TAB PO ONE (16:00)
[2018-04-07] MEDS: HYDROCODONE/APAP 5/325 TAB PO PRN (06:23)
[2018-04-07 07:36] LABS: INR 1.19 (0.83-1.16); PROTIME(PATIENT) 15.3 SEC (12.0-15.0)
--- NOTE | 2018-04-07 08:27 | SOAPPROG ---
SOAP Progress Note Assessment/Plan: Assessment: POD#4 Hernandez-Maze IV with AtriClip exclusion of LEYDI, AVR #23 Inspiris Resilia bioprosthesis, asc aorta replacement #23 Hemashield graft Long standing persistent atrial fibrillation s/p CM 4 - Postop rhythm consistently junctional (30s-40s). - Vpacer dependent. No sig tello recovery off Sotalol. PPM planned in am. - Antithrombotic prophylaxis with Coumadin, target INR 2-3, duration as per Maze protocol. BAV with moderate /AI and aneurysmal asc ao s/p AVR/asc ao replacement - Thromboprophylaxis with baby ASA. Adjunctive Coumadin as per Maze. - Chest tubes out. - Persistently low SBPs, responsive to IVFs. Postpump vasoplegia +/- loss atrial kick suspected. Bedside echo neg for pericard effusion. Acute expected blood loss anemia with thrombocytopenia and mild coagulopathy - Corrected with 2u PRBC, 1u Plt and 1u FFP. - No evidence active bleeding. - Care with VTE prophylaxis while platelets depressed. Transition to Coumadin in progress. Plan: VVI backup at 76. Inc coumadin to 5 mg today. Cont inc activity as tolerated. NPO after MN for PPM tomorrow. 04/07/18 08:26 Subjective: Ok now - lousy when pacer rate decreased or paused. Min incisional discomfort. Objective: Vital Signs Temp Pulse Resp BP Pulse Ox 36.8 C 76 19 122/76 H 98 04/07/18 07:40 04/07/18 07:51 04/07/18 07:40 04/07/18 07:51 04/07/18 07:40 Laboratory Results 04/07/18 07:20 04/06/18 04/07/18 04/08/18 05:59 05:59 05:59 Intake Total 550 1700 Output Total 1230 1905 Balance -680 -205 PT 15.3 SEC (12.0-15.0) H 04/07/18 07:20 INR 1.19 (0.83-1.16) H 04/07/18 07:20 Remains Vpaced. SBP dip into 80s when HR in the 60s. No apparent acceleration with activity. Borderline suppl O2 req. Balanced I/Os. INR yet to budge. Physical Exam - Physical Exam General Appearance: alert, no apparent distress Respiratory: lungs clear (grossly) Cardiac/Chest: regular rate, rhythm (paced), other (Sternum stable. Sternotomy CDI) Abdomen: non-tender, soft Skin: warm/dry Extremities: swelling (trace) ICD10 Worksheet Patient Problems: Problems Problem Status Onset Acute blood loss anemia Acute S/P aortic aneurysm repair Acute S/P aortic valve replacement Acute Status post ablation of atrial fibrillation Acute Aortic valve stenosis with insufficiency Chronic Ascending aortic aneurysm Chronic Bicuspid aortic valve Chronic Chronic anticoagulation Chronic Atrial fibrillation and flutter Chronic
[2018-04-07] MEDS: ASPIRIN 81 MG CHEWABLE TAB PO SCH (10:00)
[2018-04-07] MEDS: PANTOPRAZOLE SODIUM 40 MG TAB PO SCH (10:00)
[2018-04-07] MEDS: ACETAMINOPHEN 325 MG TAB PO PRN (10:04)
[2018-04-07] MEDS ORDERED: MAGNESIUM HYDROXIDE 30 ML UDCUP PO ONE (13:08)
[2018-04-07] MEDS: ACETAMINOPHEN 500 MG TAB PO SCH ×3 (13:17→21:33)
[2018-04-07] MEDS ORDERED: FUROSEMIDE 20 MG/2 ML VIAL IVP ONE (15:45)
[2018-04-07] MEDS ORDERED: POTASSIUM CL 10 MEQ TAB PO ONE (15:45)
[2018-04-07] MEDS ORDERED: WARFARIN SODIUM 5 MG TAB PO ONE (16:00)
--- NOTE | 2018-04-07 16:35 | ASMTCMCOM ---
CM Note CM Note Notes: CM spoke with RN, patient to get pacemaker placed tomorrow, could possibly discharge Tues or Weds, likely independent. CM to follow. Date Signed: 04/07/2018 04:34 PM Electronically Signed By:Anamaria Nielsen
[2018-04-07] MEDS: traMADol 50 MG TAB PO PRN (22:55)
[2018-04-08 04:39] LABS: PLATELET COUNT 118 10^3/uL (150-400)
[2018-04-08] MEDS: traMADol 50 MG TAB PO PRN ×2 (06:16→07:45)
[2018-04-08 06:39] LABS: INR 1.25 (0.83-1.16); PROTIME(PATIENT) 15.9 SEC (12.0-15.0)
[2018-04-08] MEDS ORDERED: BACITRACIN IRRIGATION/NS 50,000 UNITS/1,000 ML BTL IRR ONE (07:00)
[2018-04-08] MEDS ORDERED: diphenhydrAMINE 25 MG CAP PO ONE (07:00)
[2018-04-08] MEDS ORDERED: NS 1,000 ML IV ONE (07:00)
[2018-04-08] MEDS ORDERED: DIAZEPAM 5 MG TAB PO ONE (07:00)
[2018-04-08] MEDS ORDERED: ceFAZolin 2 GM/DEXTROSE 100 ML IV ONE (07:00)
--- NOTE | 2018-04-08 07:39 | SOAPPROG ---
SOAP Progress Note Assessment/Plan: Assessment: POD#5 Hernandez-Maze IV with AtriClip exclusion of LEYDI, AVR #23 Inspiris Resilia bioprosthesis, asc aorta replacement #23 Hemashield graft Long standing persistent atrial fibrillation s/p CM 4 - Postop rhythm consistently junctional (30s-40s). - Vpacer dependent. No sig tello recovery off Sotalol. PPM planned. - Antithrombotic prophylaxis with Coumadin, target INR 2-3, duration as per Maze protocol. BAV with moderate /AI and aneurysmal asc ao s/p AVR/asc ao replacement - Thromboprophylaxis with baby ASA. Adjunctive Coumadin as per Maze. - Chest tubes out. - Persistently low SBPs, responsive to IVFs. Postpump vasoplegia +/- loss atrial kick suspected. Bedside echo neg for pericard effusion. - Significant volume overload well tolerated. Aggressive IV diuresis once PPM and more robust SBPs. Acute expected blood loss anemia with thrombocytopenia and mild coagulopathy - Corrected with 2u PRBC, 1u Plt and 1u FFP. - No evidence active bleeding. Platelet rebound noted. - VTE prophylaxis with SQ hep until INR > 1.6. Plan: NPO and VVI backup 76 pending PPM placement. Remove Vwires and QLC after procedure. Cont coumadin 5 mg today. Cont inc activity as tolerated. Dispo - Home without services in 1-2 days. 04/08/18 07:36 Subjective: Feels bloated. Sensitive to changes in backup pacing. Recurrent diaphoresis and lightheadedness this am with heart rate of 60. Objective: Vital Signs Temp Pulse Resp BP Pulse Ox 36.4 C 77 16 106/69 93 04/08/18 07:05 04/08/18 07:05 04/08/18 07:05 04/08/18 07:05 04/08/18 07:05 Laboratory Results 04/08/18 03:52 04/08/18 03:52 04/07/18 04/08/18 04/09/18 05:59 05:59 05:59 Intake Total 1700 1613 Output Total 1905 1500 Balance -205 113 PT 15.9 SEC (12.0-15.0) H 04/08/18 06:00 INR 1.25 (0.83-1.16) H 04/08/18 06:00 Ongoing JR, Vpacer dependence. SBPs remain relatively low. Borderline suppl O2 req. Positive fluid balance. +8 kg overall. Labs ok. - Pending Discharge Pending Discharge Within 48 Hours: Yes Pending Discharge Date: 04/10/18 Pending Discharge Time: 11:00 Physical Exam - Physical Exam General Appearance: alert, no apparent distress Respiratory: lungs clear (grossly) Cardiac/Chest: regular rate, rhythm (paced), other (Sternotomy CDI. Vwires intact.) Abdomen: non-tender, soft Skin: warm/dry Extremities: swelling (trace dependent) ICD10 Worksheet Patient Problems: Problems Problem Status Onset Acute blood loss anemia Acute S/P aortic aneurysm repair Acute S/P aortic valve replacement Acute Status post ablation of atrial fibrillation Acute Aortic valve stenosis with insufficiency Chronic Ascending aortic aneurysm Chronic Bicuspid aortic valve Chronic Chronic anticoagulation Chronic Atrial fibrillation and flutter Chronic
[2018-04-08] MEDS ORDERED: FUROSEMIDE 20 MG/2 ML VIAL IVP ONE (08:00)
[2018-04-08] MEDS: PANTOPRAZOLE SODIUM 40 MG TAB PO SCH (08:05)
[2018-04-08] MEDS: ASPIRIN 81 MG CHEWABLE TAB PO SCH (08:05)
[2018-04-08] MEDS: ACETAMINOPHEN 500 MG TAB PO SCH ×4 (08:05→20:35)
--- NOTE | 2018-04-08 12:22 | PDPROPOC ---
Sedation Plan of Care Sedation Plan of Care: vital signs stable, mental status noted, patient educated of risks, benefits, alternatives, patient can tolerate sedation ASA Classification: ASA 2 Planned drugs: fentanyl, midazolam Mallampati Score: Class 2 Mallampati Reference Image: Patient passed 3-3-2 rule?: Yes
--- NOTE | 2018-04-08 12:22 | PDCARPN ---
Cardiology Progress Note Assessment/Plan: Assessment: 1. Status post Maze procedure and aortic surgery, postoperative day 5 2. Symptomatic bradycardia with junctional rhythm without beta-blockers on board 3. Atrial fibrillation 4. History of bicuspid aortic valve and ascending aortic aneurysm Plan: 1. Dual-chamber pacemaker implantation today. Risks of transvenous pacemaker implantation including but not limited to , myocardial infarction, stroke, cardiac tamponade which may require emergent cardiac surgery, infection, bleeding, pneumothorax, lead dislodgement and risks of sedation/anesthesia were discussed. Long-term issues like pacemaker pocket erosion, lead failure, venous stenosis, superior vena cava syndrome, need for lead extraction were discussed. Need for close long-term follow-up in our device clinic was emphasized. Need for generator change was discussed. and RN were present for this discussion 2. Continue anticoagulation long-term 3. Initiate beta-blockers after pacemaker implantation 04/08/18 12:20 Subjective: Bradycardia, postoperative day 5 Upon decreasing ventricular pacing rate to 40 beats per minute, patient does have junctional rhythm between 40-60 beats per minute but is hypotensive fatigued and diaphoretic. Reviewed/Discussed With: family, multidisciplinary team Time Spent with Patient: greater than 25 minutes Time Spent with Patient: Greater than 25 minutes spent on this patients care, greater than 50% of time spent counseling, educating, and coordinating care regarding the above mentioned plan. Objective: Vital Signs (8 Hrs) Temp Pulse Resp BP Pulse Ox 04/08/18 07:05 36.4 C 77 16 106/69 93 Intake/Output (24 Hrs) 04/07/18 04/08/18 04/09/18 11:59 11:59 11:59 Intake Total 1200 1613 Output Total 1825 1500 Balance -625 113 Intake: Oral (ml) 1200 1613 Output: Urine (ml) 1825 1500 Toilet 400 Urinal 1825 1100 Other: Weight 89.1 kg 111.5 kg Intake Quantity Yes Yes Sufficient Number of Voids Toilet 1 Urinal 1 1 Number of Stools Toilet 1 Urinal 0 Post Void Residual Scan Volume (ml) Urinal 0 Result Diagrams: 04/08/18 03:52 04/08/18 03:52 Telemetry: Ventricular paced rhythm ICD10 Worksheet Patient Problems: Problems Problem Status Onset Acute blood loss anemia Acute S/P aortic aneurysm repair Acute S/P aortic valve replacement Acute Status post ablation of atrial fibrillation Acute Aortic valve stenosis with insufficiency Chronic Ascending aortic aneurysm Chronic Bicuspid aortic valve Chronic Chronic anticoagulation Chronic Atrial fibrillation and flutter Chronic
[2018-04-08] MEDS ORDERED: LIDOCAINE 1% 300 MG/30 ML SDV ONE (12:50)
[2018-04-08] MEDS ORDERED: MIDAZOLAM 2 MG/2 ML VIAL ONE (12:51)
[2018-04-08] MEDS ORDERED: BUPIVACAINE 0.75% 10 ML SDV ONE (12:51)
[2018-04-08] MEDS ORDERED: IOPAMIDOL (ISOVUE-300) 100 ML BTL ONE (12:51)
[2018-04-08] MEDS ORDERED: fentaNYL 100 MCG/2 ML INJ ONE (12:51)
[2018-04-08] MEDS ORDERED: FUROSEMIDE 20 MG/2 ML VIAL ONE (14:26)
--- NOTE | 2018-04-08 14:56 | EPPROC ---
Electrophysiology Procedure Note: PROCEDURE PERFORMED: 1. Implantation of an A/V Pacemaker 2. Subclavian vein angiography 3. Fluoroscopy INDICATION: Post Maze AT and underlying rhythm 40 bpm (junctional) PROCEDURE NOTE: Patient presented to the cardiac catheterization laboratory in a fasting, post absorptive state . EP RN administered sedation. The left infraclavicular area was prepped and draped in the usual sterile fashion. Lidocaine plus bupivacaine was used for local anesthesia. Left subclavian venography was performed by injection of iodinated contrast into the left antecubital vein. This was done to assure patency of the vein and also to assess for any anatomical aberrations. Using a combination of blunt and sharp dissection and electrocautery, the dissection was carried down to the prepectoral fascia. A pocket was made in this anatomical plane. All bleeding was controlled with electrocautery. The pocket was packed with gauze soaked in antibiotic solution. Fluoroscopy was utilized during the entire procedure for venous access and placement of the leads. Using a direct stick technique the left extrathoracic axillary vein was accessed with 2 sticks using the modified Seldinger technique. Placement of the guidewires into the venous system was confirmed by low-pressure blood return and also by visualizing the guidewires advancing into the inferior vena cava. A purse string suture was applied around the guidewires. Two #7 Gibraltarian sheaths were advanced under fluoroscopic guidance over the guidewire. An active fixation ventricular lead was advanced into the right ventricular apex and screwed in place. An active fixation atrial lead was advanced into the right atrial appendage and screwed in place. The peel away sheaths were removed. Pacing thresholds, sensing parameters and lead impedances were measured. There was no diaphragmatic stimulation at maximum output. The leads were sutured to the prepectoral fascia with 3 nonabsorbable sutures each. The pocket was again inspected for any bleeding. The leads were attached to the pacemaker securely. The pacemaker was inserted into the pocket and secured in place with a nonabsorbable suture. Patient was in left AT CL 300 ms, this was pace terminated. Fluoroscopy was performed in JIMENEZ and SINHALA planes to verify right-sided placement of the leads. Also fluoroscopy of the pacemaker pocket was performed. The pacemaker pocket was closed in 3 layers with absorbable monocryl sutures and monster. Appropriate dressing was applied. The patient left the cardiac catheterization laboratory in stable condition. Serial Numbers: 1. Device: BiotronikEdora 8 DRT SN [id number] 2. Atrial Lead: Biotronik Solia 45 cm SN [id number] 3. Ventricular Lead: Biotronik Solia 53 cm SN [id number] Stimulation Thresholds & Impedance Measurements: 1. Atrial Lead No atrial activity post burst pacing, 1 V 0.4 ms 409 oh 2. Ventricular Lead R 8.9 mV 0.4 V 0.4 ms 546 ohm Christopher Pacing Parameters 1. Pacing mode: DDD-CLS 2. Lower rate: 80ppm 3. Upper tracking rate: 130 ppm 4. Upper sensor rate: 130 ppm Patient Problems: Problems Problem Status Onset Acute blood loss anemia Acute S/P aortic valve replacement Acute S/P aortic aneurysm repair Acute Status post ablation of atrial fibrillation Acute Chronic anticoagulation Chronic Ascending aortic aneurysm Chronic Bicuspid aortic valve Chronic Aortic valve stenosis with insufficiency Chronic Atrial fibrillation and flutter Chronic
[2018-04-08] MEDS ORDERED: WARFARIN SODIUM 5 MG TAB PO ONE (17:00)
[2018-04-08] MEDS: POTASSIUM CL 10 MEQ TAB PO SCH (20:36)
[2018-04-09] MEDS: traMADol 50 MG TAB PO PRN (04:15)
[2018-04-09 04:26] LABS: PLATELET COUNT 151 10^3/uL (150-400)
[2018-04-09 04:33] LABS: INR 1.49 (0.83-1.16); PROTIME(PATIENT) 18.2 SEC (12.0-15.0)
--- NOTE | 2018-04-09 06:13 | SOAPPROG ---
SOAP Progress Note Assessment/Plan: POD #6: AVR with #23 Inspiris Resilia bioprosthesis, ascending aorta replacement with #23 Hemashield graft, Hernandez-Maze IV with AtriClip exclusion of LEYDI POD #1: Implantation of an A/V Pacemaker Moderate /AI/BAV with asc ao aneurysm s/p AVR/asc ao replacement - ASA for AV thromboprophylaxis Long standing persistent atrial fibrillation s/p CM 4 - s/p A/V pacemaker for persistent bradycardia - Coumadin for thromboprophylaxis - Sotalol discontinued - BB/amiodarone as tolerated Acute blood loss anemia with coagulopathy, thrombocytopenia - Stable, monitor DVT prophylaxis - Coumadin/SCDs Disposition - Home without services Sunday Subjective: Feeling great now that BP higher. Denies SOB. Objective: Vital Signs Temp Pulse Resp BP Pulse Ox 37.1 C 80 16 113/74 98 04/09/18 04:00 04/09/18 04:00 04/09/18 04:00 04/09/18 04:00 04/09/18 04:00 Laboratory Results 04/09/18 03:40 04/09/18 03:40 04/08/18 04/09/18 04/10/18 05:59 05:59 05:59 Intake Total 1613 1150 Output Total 1500 2075 Balance 113 -925 PT 18.2 SEC (12.0-15.0) H 04/09/18 03:40 INR 1.49 (0.83-1.16) H 04/09/18 03:40 Physical Exam - Physical Exam General Appearance: WD/WN, alert, no apparent distress EENT: No scleral icterus (R), No scleral icterus (L) Neck: normal inspection Respiratory: No respiratory distress Cardiac/Chest: other (AP) Abdomen: non-tender, soft, No distended Skin: normal color, warm/dry Extremities: pedal edema Neuro/Psych: no motor/sensory deficits, alert, normal mood/affect, oriented x 3 ICD10 Worksheet Patient Problems: Problems Problem Status Onset Acute blood loss anemia Acute S/P aortic aneurysm repair Acute S/P aortic valve replacement Acute Status post ablation of atrial fibrillation Acute Aortic valve stenosis with insufficiency Chronic Ascending aortic aneurysm Chronic Bicuspid aortic valve Chronic Chronic anticoagulation Chronic Atrial fibrillation and flutter Chronic
[2018-04-09] MEDS ORDERED: FUROSEMIDE 40 MG/4 ML VIAL IVP ONE ×2 (07:05→12:00)
[2018-04-09] MEDS: ACETAMINOPHEN 500 MG TAB PO SCH ×4 (08:08→23:13)
[2018-04-09] MEDS: ASPIRIN 81 MG CHEWABLE TAB PO SCH (08:08)
[2018-04-09] MEDS: POTASSIUM CL 10 MEQ TAB PO SCH ×2 (08:09→20:22)
[2018-04-09] MEDS: PANTOPRAZOLE SODIUM 40 MG TAB PO SCH (08:10)
[2018-04-09] MEDS ORDERED: FUROSEMIDE 40 MG TAB PO SCH (09:00)
[2018-04-09] MEDS ORDERED: FUROSEMIDE 40 MG/4 ML VIAL IVP SCH (09:00)
--- NOTE | 2018-04-09 09:34 | ASMTCMCOM ---
CM Note CM Note Notes: 04/09/2018 Case Management Note Discussed pt w/Jian LU. Pt will attend outpatient cardiac rehab upon discharge. Anticipating d/c Sunday. Case Management d/c poc: home independent with follow up as directed. Case Management available if needs change. Date Signed: 04/09/2018 09:33 AM Electronically Signed By:Lainey Amin RN
--- NOTE | 2018-04-09 10:19 | CPEKG ---
Test Reason : OPEN Blood Pressure : / mmHG Vent. Rate : 081 BPM Atrial Rate : 080 BPM P-R Int : 176 ms QRS Dur : 086 ms QT Int : 405 ms P-R-T Axes : 000 045 083 degrees QTc Int : 470 ms Ventricular-paced complexes Paced rhythm is new in comparison to prior ECG (with what appeared to be junctional) Confirmed by Giancarlo Sky ([id number]) on 04/09/2018 10:18:39 AM Referred By: Confirmed By:Giancarlo Sky
--- NOTE | 2018-04-09 13:02 | PDCARPN ---
Cardiology Progress Note Chief Complaint: bradycardia/junctional rhythm Assessment/Plan: Assessment: 57 y/o M PMH BAV, ascending aortic aneurysm, found to have bradycardia, hypotension, and junctional rhythm. Status post Maze procedure and bio AVR and aneurysm surgery, postoperative day 6. #. Symptomatic bradycardia with junctional rhythm without beta-blockers on board : s/p Biotronik PPM we reviewed arm precautions today he will be followed in device clinic #. Atrial fibrillation: back on Warfarin s/p Hernandez-Maze IV procedure and Atriclip appears to be in an A-paced rhythm #. History of bicuspid aortic valve and ascending aortic aneurysm: s/p bioAVR and aneurysm surgery Plan: - OK to discharge when cleared by CT surgery with outpatient follow up in device clinic 04/09/18 12:57 Subjective: Feels well. Has some pain over pacer site. Objective: Vital Signs (8 Hrs) Temp Pulse Resp BP Pulse Ox 04/09/18 12:00 80 88 L 04/09/18 07:54 99.1 F 80 20 96/62 L 93 04/09/18 06:35 94 Intake/Output (24 Hrs) 04/08/18 04/09/18 04/10/18 05:59 05:59 05:59 Intake Total 1613 1150 Output Total 1500 2075 1025 Balance 113 -925 -1025 Intake: Oral (ml) 1613 750 IV Intake (ml) 400 Output: Urine (ml) 1500 2075 1025 Toilet 400 550 Urinal 1100 2075 475 Other: Weight 111.5 kg 110 kg Intake Quantity Yes Sufficient Number of Voids Toilet 1 Urinal 1 1 Number of Stools Toilet 1 1 Result Diagrams: 04/09/18 03:40 04/09/18 03:40 EKG: A-paced Telemetry: A paced - Physical Exam Constitutional: no apparent distress Eyes: PERRL, EOMI Ears, Nose, Mouth, Throat: moist mucous membranes Cardiovascular: regular rate and rhythm, no murmurs Respiratory: reduced air movement, inspiratory crackles Skin: no rashes, no abrasions, warm, other (L pectoral region with dressing dry/ mild surrounding edema) Neurologic: AAOx3 Psychiatric: cooperative, interactive ICD10 Worksheet Patient Problems: Problems Problem Status Onset Acute blood loss anemia Acute S/P aortic valve replacement Acute S/P aortic aneurysm repair Acute Status post ablation of atrial fibrillation Acute Chronic anticoagulation Chronic Ascending aortic aneurysm Chronic Bicuspid aortic valve Chronic Aortic valve stenosis with insufficiency Chronic Atrial fibrillation and flutter Chronic
[2018-04-09] MEDS ORDERED: AMIODARONE HCL 100 ML IV ONE (14:54)
[2018-04-09] MEDS ORDERED: AMIODARONE HCL 200 ML IV ONE (14:54)
[2018-04-09] MEDS ORDERED: WARFARIN SODIUM 5 MG TAB PO ONE (16:00)
[2018-04-09] MEDS: METOPROLOL TARTRATE 25 MG TAB PO SCH ×2 (16:16→20:22)
[2018-04-09] MEDS ORDERED: AMIODARONE HCL 540 MG in D5W 300 ML IV ONE (21:30)
[2018-04-10] MEDS: traMADol 50 MG TAB PO PRN (03:58)
[2018-04-10 04:49] LABS: INR 1.48 (0.83-1.16); PROTIME(PATIENT) 18.1 SEC (12.0-15.0)
--- NOTE | 2018-04-10 06:17 | SOAPPROG ---
SOAP Progress Note Assessment/Plan: POD #7: AVR with #23 Inspiris Resilia bioprosthesis, ascending aorta replacement with #23 Hemashield graft, Hernandez-Maze IV with AtriClip exclusion of LEYDI POD #2: Implantation of an A/V Pacemaker Moderate /AI/BAV with asc ao aneurysm s/p AVR/asc ao replacement - ASA for AV thromboprophylaxis Long standing persistent atrial fibrillation s/p CM 4 - s/p A/V pacemaker for persistent bradycardia - EP to interrogate PPM (?AT) - Coumadin for thromboprophylaxis - Sotalol discontinued, BB/amiodarone as tolerated (NADER 04/09) Acute blood loss anemia with coagulopathy, thrombocytopenia - Stable, monitor DVT prophylaxis - Coumadin/SCDs Disposition - Home without services Sunday/ Subjective: Feels well. Denies pain/SOB. Objective: Vital Signs Temp Pulse Resp BP Pulse Ox 37.3 C 83 18 112/74 96 04/10/18 03:48 04/10/18 03:48 04/10/18 03:48 04/10/18 03:48 04/10/18 03:48 Laboratory Results 04/09/18 03:40 04/10/18 03:44 04/09/18 04/10/18 04/11/18 05:59 05:59 05:59 Intake Total 1150 1300 Output Total 2075 2150 Balance -925 -850 PT 18.1 SEC (12.0-15.0) H 04/10/18 03:44 INR 1.48 (0.83-1.16) H 04/10/18 03:44 Physical Exam - Physical Exam General Appearance: WD/WN, alert, no apparent distress EENT: No scleral icterus (R), No scleral icterus (L) Neck: normal inspection Respiratory: No respiratory distress Cardiac/Chest: other (paced) Abdomen: non-tender, soft, No distended Skin: normal color, warm/dry Extremities: pedal edema Neuro/Psych: no motor/sensory deficits, alert, normal mood/affect, oriented x 3 ICD10 Worksheet Patient Problems: Problems Problem Status Onset Acute blood loss anemia Acute S/P aortic aneurysm repair Acute S/P aortic valve replacement Acute Status post ablation of atrial fibrillation Acute Aortic valve stenosis with insufficiency Chronic Ascending aortic aneurysm Chronic Bicuspid aortic valve Chronic Chronic anticoagulation Chronic Atrial fibrillation and flutter Chronic
[2018-04-10] MEDS ORDERED: POTASSIUM CL 20 MEQ TAB PO ONE (06:32)
[2018-04-10] MEDS ORDERED: FUROSEMIDE 40 MG/4 ML VIAL IVP ONE (06:32)
[2018-04-10] MEDS: ACETAMINOPHEN 500 MG TAB PO SCH ×2 (06:56→12:08)
[2018-04-10] MEDS: ASPIRIN 81 MG CHEWABLE TAB PO SCH (08:58)
[2018-04-10] MEDS: PANTOPRAZOLE SODIUM 40 MG TAB PO SCH (08:58)
[2018-04-10] MEDS ORDERED: ENOXAPARIN 40 MG/0.4 ML SYR SC SCH (09:00)
[2018-04-10 10:58] VITALS: BP 105/71
[2018-04-10] MEDS ORDERED: FUROSEMIDE 40 MG/4 ML VIAL IVP SCH (11:45)
[2018-04-10] MEDS ORDERED: POTASSIUM CL 20 MEQ TAB PO SCH (11:45)
[2018-04-10] MEDS ORDERED: PNEUMOCOCCAL 0.5ML VACCINE VIAL IM ONE (11:56)
--- NOTE | 2018-04-10 12:34 | PDDCSUM ---
Discharge Summary Discharge Summary: ADMISSION DATE: 04/02/18 DISCHARGE DATE: 04/10/18 DISCHARGE DIAGNOSES 1. Moderate aortic stenosis/insufficiency 2. Ascending aortic aneurysm 3. Long standing persistent atrial fibrillation 4. Acute post-op blood loss anemia 5. Thrombocytopenia PROCEDURES 04/03/18, Mike Strong: 1. AVR with #23 Inspiris Resilia bioprosthesis, ascending aorta replacement with #23 Hemashield graft, Hernandez-Maze IV with AtriClip exclusion of LEYDI 04/08/18, Al Herrera: 1. Implantation of A/V pacemaker HPI 57M admitted in advance of [facility]HS for risk stratification; found to have normal coronary arteries. HOSPITAL COURSE BY PROBLEM LIST 1. Moderate aortic stenosis/insufficiency with ascending aortic aneurysm - stable s/p AVR and aneurysm repair. ASA for thromboprophylaxis. Beta-ivan for secondary prevention. 2. Longstanding persistent atrial fibrillation s/p CM IV with AtriClip exclusion of LEYDI - persistent post-op bradyarrhythmias requiring PPM implantation. Amiodarone and beta-ivan prescribed for AF prophylaxis. Coumadin resumed. Duration as per Maze protocol. 3. Acute post-op blood loss anemia with thrombocytopenia - no transfusions required. CONDITION Good PERTINENT DISCHARGE CLINICAL INFORMATION Vitals: 105/71, 83 (paced), 91% on RA, +6kg Exam: S1S2, No resp distress, ND, soft, NTP, LE with edema +1 edema BL Labs: INR 1.48 DISPOSITION Home without services ACTIVITY Pt was instructed on sternal precautions, activity limitations, and which problems to call [facility] with. Please see Discharge Plan in chart for specifics. DISCHARGE MEDICATIONS Continue: Atorvastatin Calcium [Lipitor 20 mg (*)] 20 mg PO DAILY Herbals/Supplements -Info Only 1 ea PO DAILY Warfarin Sodium [Coumadin 2.5MG (*)] 2.5 mg PO MOWEFRSA Warfarin Sodium [Coumadin 5MG (*)] 5 mg PO [facility] New: Amiodarone HCl [Pacerone (*)] 200 mg PO BID #35 Aspirin [Aspirin 81mg (*)] 81 mg PO DAILY Furosemide [Lasix 40 MG (*)] 60 mg PO BID Ibuprofen [Motrin (*)] 600 mg PO Q6HRS PRN Metoprolol Tartrate [Lopressor 25 mg (*)] 12.5 mg PO BID Potassium Cl [Klor-Con 20 meq (*)] 20 meq PO BID traMADol [Ultram 50 mg (*)] 50 - 100 mg PO Q4HRS PRN #30 Stop Sotalol PENDING STUDIES/LABS 1. CXR prior to surgical follow-up 2. INR Sunday as per existing management FOLLOW-UP 1. Device clinic, 04/16/18, 10:00AM 2. Mike Strong, 04/16/18, 10:30 AM 3. Al Herrera, 05/09/18, 1:30 PM
--- NOTE | 2018-04-10 12:38 | PDCARPN ---
Cardiology Progress Note Chief Complaint: elda/junctional rhyhtm s/p ppm; PAF Assessment/Plan: Assessment: 57 y/o M PMH BAV, ascending aortic aneurysm, found to have bradycardia, hypotension, and junctional rhythm. Status post Maze procedure and bio AVR and aneurysm surgery, postoperative day 7. #. Symptomatic bradycardia with junctional rhythm without beta-blockers on board : s/p Biotronik PPM we reviewed arm precautions today he will be followed in device clinic #. Atrial fibrillation: back on Warfarin s/p Hernandez-Maze IV procedure and Atriclip has had AF 25% of the time yesterday/ started on Amio gtt and now on PO Amio follow up with Javier as cheduled #. History of bicuspid aortic valve and ascending aortic aneurysm: s/p bioAVR and aneurysm surgery Plan: - OK to discharge when cleared by CT surgery with outpatient follow up in device clinic 04/10/18 12:36 Subjective: [place] chilled yesterday but currently feeling OK. No palps or dizziness. Reviewed/Discussed With: multidisciplinary team (Dr. Herrera, Dr. Strong and Jian Domínguez) Time Spent with Patient: greater than 25 minutes Time Spent with Patient: Greater than 25 minutes spent on this patients care, greater than 50% of time spent counseling, educating, and coordinating care regarding the above mentioned plan. Objective: Vital Signs (8 Hrs) Temp Pulse Resp BP Pulse Ox 04/10/18 10:55 98.4 F 83 20 105/71 91 L 04/10/18 09:46 89 93 04/10/18 07:44 98.6 F 90 18 104/68 90 L Intake/Output (24 Hrs) 04/09/18 04/10/18 04/11/18 05:59 05:59 05:59 Intake Total 1150 1300 540 Output Total 2075 2150 675 Balance -925 -850 -135 Intake: Oral (ml) 750 900 540 IV Intake (ml) 400 IV Infused (ml) 400 Amiodarone HCl 100 ml @ 100 600 mls/hr IV ONCE ONE Rx #:[id number] Amiodarone HCl 200 ml @ 66 33.333 mls/hr IV ONCE ONE Rx#:[id number] Amiodarone HCl 540 mg In 234 D5w 300 ml @ 16.667 mls/ hr IV ONCE ONE Rx#: [id number] Output: Urine (ml) 2074 2150 675 Toilet 950 Urinal 2074 1200 675 Other: Weight 110 kg 108.9 kg Number of Voids Toilet 1 Urinal 1 Number of Stools Toilet 1 1 Result Diagrams: 04/09/18 03:40 04/10/18 03:44 Telemetry: V paced with AF and also some A-paced - Physical Exam Constitutional: no apparent distress Eyes: anicteric sclera Cardiovascular: regular rate and rhythm Respiratory: clear to auscultate bilat, reduced air movement Skin: no rashes, no abrasions Neurologic: AAOx3 Psychiatric: cooperative, interactive ICD10 Worksheet Patient Problems: Problems Problem Status Onset Acute blood loss anemia Acute S/P aortic aneurysm repair Acute S/P aortic valve replacement Acute Status post ablation of atrial fibrillation Acute Aortic valve stenosis with insufficiency Chronic Ascending aortic aneurysm Chronic Bicuspid aortic valve Chronic Chronic anticoagulation Chronic Atrial fibrillation and flutter Chronic
--- NOTE | 2018-04-10 14:32 | ASDISCHSUM ---
Discharge Information Plan Status:Home with No Needs Medically Cleared to Leave:04/10/2018 Discharge Date:04/10/2018 CM D/C Disposition:Home, Routine, Self-Care ADT D/C Disposition:Home, Routine, Self-Care Projected Discharge Date:04/10/2018 Transportation at D/C:Family Discharge Delay Reason: Follow-Up Date:04/10/2018 Discharge Slot: Final Diagnosis: Placement Information Patient Contact Information Contact Name:TANNER Relationship: Address:[address] [place] [address] City:[facility] Phone: [facility]/Zip Code:[place] [address] Email: Financial Information Financial Class:[employer] Primary Plan Desc:[facility] H[facility] OPEN ACC LOCAL Primary Plan Number:[id number] Secondary Plan Desc: Secondary Plan Number: Assessment Information [facility] CM Progress Note CM Note CM Note Notes: Pt is a 57 y/o man admitted for an open heart surgery w/ Dr. Strong. Therapies have been ordered and awaiting recommendations. Pulmonology have been consulted. Needs are TBD at this time. CM to follow. Plan: TBD Date Signed: 04/04/2018 11:39 AM Electronically Signed By:SHELLY Berkowitz [facility] CM Progress Note CM Note CM Note Notes: Therapies have cleared pt to d/c home independent without any needs. Pt will d/c when medically stable and follow up with outpatient cardiac rehab. No other needs at this time. CM available for changes. Araseli: Independent Date Signed: 04/05/2018 09:34 AM Electronically Signed By:SHELLY Berkowitz [facility] CM Progress Note CM Note CM Note Notes: CM spoke with RN, patient to get pacemaker placed tomorrow, could possibly discharge [place] or [place], likely independent. CM to follow. Date Signed: 04/07/2018 04:34 PM Electronically Signed By:Anamaria Nielsen [facility] CM Progress Note CM Note CM Note Notes: 04/09/2018 Case Management Note Discussed pt w/Jian LU. Pt will attend outpatient cardiac rehab upon discharge. Anticipating d/c Sunday. Case Management d/c poc: home independent with follow up as directed. Case Management available if needs change. Date Signed: 04/09/2018 09:33 AM Electronically Signed By:Lainey Amin RN Case Management Discharge Plan Note Case Management Discharge Discharge Order Complete? Answers: Yes Patient to Obtain Answers: via Family Medications Transportation Arranged Answers: Family/Friends Discharge Comments Notes: 04/10/2018 Case Management Note Pt to discharge independent with follow up as directed. Date Signed: 04/10/2018 02:31 PM Electronically Signed By:Lainey Amin RN Intervention Information
--- NOTE | 2018-04-10 14:33 | ASMTLACE ---
LACE Length of stay for Answers: 7-13 days current admission Acuity / Level of Answers: Yes Care: Did the patient have an inpatient admission? Comorbidities - select Answers: Congestive heart failure all that apply Other Notes: AFib; Aortic aneurysm # of Emergency department Answers: 0 visits in the last 6 months Score: 11 Date Signed: 04/10/2018 02:32 PM Electronically Signed By:Lainey Amin RN
--- NOTE | 2018-04-10 15:44 | ECHO ---
[email or web address] [address] [address] Main: [phone] Fax: Transthoracic Echocardiogram Name: JERMAINE DEL VALLE MR#: [id number] Study Date: 04/10/2018 Study Time: 10:10 AM Date of : 1960 Age: 57 year(s) Height: 177.8 cm (70 in.) Weight: 102.51 kg (226 lb.) BSA: 2.2 m2 Gender: Male Examination: Echo Indication: Post Op Image Quality: Adequate Contrast: Requested by: Mike Strong BP: 104 mmHg/66 mmHg Heart Rate: Rhythm: Indication: Post Op Procedure Staff [employer] Member: Maite Hawthorne [facility] Reading Physician: Mike Betancourt MD Requesting Provider: Conclusions: Normal size left ventricle. Mild concentric LV hypertrophy. EF is 61 %. No regional wall motion abnormality. There is a pacemaker lead noted in the right ventricle. Mild mitral valve regurgitation is present. The aortic valve is a bioprosthesis. #23 Inspiris Resilia. Normal functioning aortic valve prosthesis. Mild to moderate tricuspid valve regurgitation. Right ventricular systolic pressure measures 41mmHg. Small pericardial effusion. No evidence of pericardial tqmponade. No significant change compared to 04/05/2018. Measurements: Chambers Valvular Assessment AV/MV Valvular Assessment TV/PV Normal Normal Normal Name Value Range Name Value Range Name Value Range Ao Sayra (2D): 2.7 cm (1.4 cm-2.6 AV Vmax: 2.20 m/s (1 m/s-1.7 TR Vmax: 3.01 mm/s ( - ) cm) m/s) TR PGmax: 36 mmHg ( - ) IVSd (2D): 1.3 cm (0.6 cm-1.1 AV maxP mmHg ( - ) syst. PAP: 41 mmHg ( - ) cm) AV meanP mmHg ( - ) PV Vmax: 1.00 m/s (0.6 m/s-0.9 LVDd (2D): 4.3 cm (4.2 cm-5.9 EDITH (VTI): 1.3 cm ( - ) m/s) cm) MV E Vmax: 1.02 m/s ( - ) PV PGmax: 4 mmHg ( - ) LVDs (2D): 3.1 cm (2.1 cm-4 MV PHT: 0.052 s ( - ) cm) MVA (PHT): 4.2 s ( - ) LVPWd (2D): 1.3 cm (0.6 cm-1 cm) LVOTd 1.9 cm 1.9 cm mm Patient: JERMAINE DEL VALLE Study Date: 04/10/2018 Page 1 of 2 10:10 AM LVEF (BP): 61 % (>=55 %) RVDd(2D): 3.6 cm (1.9 cm-3.8 cmmm) Continued Measurements: Chambers Valvular Assessment AV/MV Valvular Assessment TV/PV Name Value Name Value Name Value LADs: 3.7 cm MV DecTime: 183 m/s CVP (est.): 5 mmHg LADs Lon.3 cm LA Area: 20.9 cm2 LA Volume: 73 ml LA Volume Index: 33.2 ml/m2 RA Area: 19.8 cm2 Additional Vessels Name Value Inferior Vena Cava: 2.3 cm Findings: Left Ventricle: Normal size left ventricle. Mild concentric LV hypertrophy. Normal global systolic LV function. EF is 61 %. No regional wall motion abnormality. Unable to assess diastolic dysfunction. Right Ventricle: Mildly dilated right ventricle. Normal RV function. There is a pacemaker lead noted in the right ventricle. Left Atrium: The left atirum is borderline dilated. Right Atrium: The right atrium is mildly dilated. Mitral Valve: The mitral valve is normal in appearance. Mild mitral valve regurgitation is present. No mitral stenosis is present. Aortic Valve: The aortic valve is a bioprosthesis. Normal functioning aortic valve prosthesis. The prosthetic aortic valve is normal. The orifice motion of the prosthetic aortic valve is normal. No prosthesis regurgitation. #23 Inspiris Resilia. Tricuspid Valve: The tricuspid valve is normal in appearance and function. Mild to moderate tricuspid valve regurgitation. The pulmonary artery pressure is mildly increased. Right ventricular systolic pressure measures 41mmHg. Pulmonic Valve: The pulmonic valve is normal in appearance and function. Aorta: The aorta is normal. Normal size aortic root measuring 2.7 cm. IVC: The IVC is mildly dilated. Pericardium: Small pericardial effusion. No pleural effusion. Exam Comments: (No Signature Object) Patient: JERMAINE DEL VALLE Study Date: 04/10/2018 Page 2 of 2 10:10 AM [id number]
[2018-04-10] MEDS ORDERED: WARFARIN SODIUM 5 MG TAB PO ONE (16:00)
[2018-04-10] MEDS ORDERED: AMIODARONE HCL 200 MG TAB PO SCH (21:00)
--- NOTE | 2018-04-11 11:49 | CPEKG ---
Test Reason : OPEN Blood Pressure : / mmHG Vent. Rate : 080 BPM Atrial Rate : 080 BPM P-R Int : 171 ms QRS Dur : 090 ms QT Int : 406 ms P-R-T Axes : 144 050 079 degrees QTc Int : 469 ms Atrial-paced complexes Low voltage, extremity leads Atrial pacing is new in comparison to prior (ventricular pacing) Confirmed by Giancarlo Sky ([id number]) on 04/11/2018 11:49:39 AM Referred By: Confirmed By:Giancarlo Sky
--- NOTE | 2018-04-11 11:54 | CPEKG ---
Test Reason : OPEN Blood Pressure : / mmHG Vent. Rate : 080 BPM Atrial Rate : 080 BPM P-R Int : 153 ms QRS Dur : 076 ms QT Int : 443 ms P-R-T Axes : 270 047 103 degrees QTc Int : 512 ms Atrial-paced rhythm Nonspecific T abnrm, anterolateral leads Prolonged QT interval Similar to prior Confirmed by Giancarlo Sky ([id number]) on 04/11/2018 11:53:45 AM Referred By: Confirmed By:Giancarlo Sky
== END 2018-04-10 14:28 | disposition home or self-care (01) | DRG 217 ==
LOC: FCATH 11:14 → F2W 13:29 → F2N 04-03 09:21 → F2W 04-04 18:21
PROVIDERS: ADMIT Internal Medicine Cardiovascular Disease; ATTEND Thoracic Surgery (Cardiothoracic Vascular Surgery)
PROC: 4A0 Measurement and Monitoring, Physiological Systems, Measurement (ICD-10-PCS; 2018-04-02)
PROC: B2111ZZ Fluoroscopy of Multiple Coronary Arteries using Low Osmolar Contrast (ICD-10-PCS; 2018-04-02)
PROC: 30233R1 Transfusion of Nonautologous Platelets into Peripheral Vein, Percutaneous Approach (ICD-10-PCS; 2018-04-02)
PROC: 30233K1 Transfusion of Nonautologous Frozen Plasma into Peripheral Vein, Percutaneous Approach (ICD-10-PCS; 2018-04-02)
PROC: 5A1223Z Performance of Cardiac Pacing, Continuous (ICD-10-PCS; principal; 2018-04-03 07:15)
PROC: 02L70CK Occlusion of Left Atrial Appendage with Extraluminal Device, Open Approach (ICD-10-PCS; principal; 2018-04-03 07:15)
PROC: 025S0ZZ Destruction of Right Pulmonary Vein, Open Approach (ICD-10-PCS; principal; 2018-04-03 07:15)
PROC: 02UX0JZ Supplement Thoracic Aorta, Ascending/Arch with Synthetic Substitute, Open Approach (ICD-10-PCS; principal; 2018-04-03 07:15)
PROC: 025T0ZZ Destruction of Left Pulmonary Vein, Open Approach (ICD-10-PCS; principal; 2018-04-03 07:15)
PROC: 02RF08Z Replacement of Aortic Valve with Zooplastic Tissue, Open Approach (ICD-10-PCS; principal; 2018-04-03 07:15)
PROC: 02H63JZ Insertion of Pacemaker Lead into Right Atrium, Percutaneous Approach (ICD-10-PCS; 2018-04-08)
PROC: 0JH606Z Insertion of Pacemaker, Dual Chamber into Chest Subcutaneous Tissue and Fascia, Open Approach (ICD-10-PCS; 2018-04-08)
PROC: 02HK0JZ Insertion of Pacemaker Lead into Right Ventricle, Open Approach (ICD-10-PCS; 2018-04-08)
DX: I35.2 Nonrheumatic aortic (valve) stenosis with insufficiency (principal); D62 Acute posthemorrhagic anemia; I48.1 Persistent atrial fibrillation; I71.2 Thoracic aortic aneurysm, without rupture; D69.6 Thrombocytopenia, unspecified; G47.33 Obstructive sleep apnea (adult) (pediatric); Z79.01 Long term (current) use of anticoagulants; Z23 Encounter for immunization
CPT/HCPCS: 82435-PO; 82565-PO; 82947-PO; 84132-PO; 84295-PO; 84520-PO; 85014-PO; 97116-GP; 97161-GP; 97165-GO; 97530-GO; 97530-GP; 97535-GO; C1768; C1785; C1898; G0008; G0009; J0153; J0171; J0282; J0330; J0690; J1265; J1644; J1650; J1815; J1885; J1940; J2001; J2150; J2250; J2260; J2270; J2370; J2405; J2704; J2720; J2930; J3010; J3475; J3480; P9016; P9017; P9035; P9041; Q9967

== ENCOUNTER → 2018-04-16 | Outpatient (CLI) | payer OTHER | LOC: FIMAGING 09:27 | PROVIDERS: ATTEND Thoracic Surgery (Cardiothoracic Vascular Surgery) | DX: J98.11 Atelectasis (principal); J90 Pleural effusion, not elsewhere classified; I51.7 Cardiomegaly; I35.0 Nonrheumatic aortic (valve) stenosis; Z98.890 Other specified postprocedural states; Z86.79 Personal history of other diseases of the circulatory system; Z95.2 Presence of prosthetic heart valve ==

== ENCOUNTER 2018-04-17 10:14 | Day surgery (SDC) | payer OTHER ==
[2018-04-17] MEDS ORDERED: ATROPINE SULFATE 1 MG/10 ML SYR IVP ONE (10:16)
[2018-04-17] MEDS ORDERED: NS 500 ML IV ONE (10:16)
[2018-04-17] MEDS ORDERED: BENZOCAINE UNIT DOSE SPRAY HURRICAINE MM ONE (10:16)
[2018-04-17] MEDS ORDERED: fentaNYL 100 MCG/2 ML INJ IVP ONE (10:16)
[2018-04-17] MEDS ORDERED: MIDAZOLAM 2 MG/2 ML VIAL IVP ONE (10:16)
[2018-04-17 11:15] LABS: INR 1.79 (0.83-1.16); PROTIME(PATIENT) 20.9 SEC (12.0-15.0)
[2018-04-17] MEDS ORDERED: PROPOFOL 200 MG/20 ML VIAL ONE (11:24)
--- NOTE | 2018-04-17 11:26 | PDANEPAE ---
ANE Past Medical History - Cardiovascular History Hx Hypertension: No Hx Arrhythmias: Yes Hx Chest Pain: No Hx Coronary Artery / Peripheral Vascular Disease: No Hx CHF / Valvular Disease: Yes Hx Palpitations: No Cardiovascular History Comment: aorta aneurysm. afib. bicuspid aortic valve. hx of cardioversions x2. hx of cardiac ablations x2. followed by [facility] - Pulmonary History Hx COPD: No Hx Asthma/Reactive Airway Disease: No Hx Recent Upper Respiratory Infection: No Hx Oxygen in Use at Home: No Hx Sleep Apnea: Yes Pulmonary History Comment: donal positive uses cpap- instructed pt to bring to hospital - Neurologic History Hx Cerebrovascular Accident: No Hx Seizures: No Hx Dementia: No - Endocrine History Hx Diabetes: No - Renal History Hx Renal Disorders: No - Liver History Hx Hepatic Disorders: No - Neurological & Psychiatric Hx Hx Neurological and Psychiatric Disorders: No - Cancer History Hx Cancer: Yes Cancer History Comment: testicular ca- removal of testicle 8 weeks of radiation 2002 - Congenital Disorder History Hx Congenital Disorders: No - GI History Hx Gastrointestinal Disorders: No - Other Health History Other Health History: wears glasses - Chronic Pain History Chronic Pain: No - Surgical History Prior Surgeries: cardioversion x2- last being 09/17/13. right ankle surgery. bilateral RTC repairs. cardiac ablations x2. bilateral bunionectomies. testicle removed d/t ca 2002 ANE Review of Systems Review of Systems: ANE Patient History - Allergies Allergies/Adverse Reactions: No Known Allergies Allergy (Verified 02/08/18 11:50) - Home Medications Home Medications: Atorvastatin Calcium [Lipitor 20 mg (*)] 20 mg PO DAILY 02/08/18 [Last Taken 03/12 08:00] Herbals/Supplements -Info Only 1 ea PO DAILY 03/27/18 [Last Taken 03/29/18 08:00 ] Warfarin Sodium [Coumadin 2.5MG (*)] 2.5 mg PO MOWEFRSA 03/27/18 [Last Taken 09/09 08:00] Warfarin Sodium [Coumadin 5MG (*)] 5 mg PO SUTUTH 03/27/18 [Last Taken 03/26/18 08:00] - Smoking Hx Smoking Status: Never smoked - Family Anes Hx Family Hx Anesthesia Complications: none ANE Labs/Vital Signs - Labs Result Diagrams: 04/17/18 10:40 - Vital Signs Height: 178 cm Weight: 102.5 kg ANE Physical Exam - Airway Neck exam: FROM Mallampati Score: Class 2 Mouth exam: normal dental/mouth exam - Pulmonary Pulmonary: no respiratory distress, no rales or rhonchi, clear to auscultation - Cardiovascular Cardiovascular: irregularly irregular - ASA Status ASA Status: III ANE Anesthesia Plan Anesthesia Plan: GA with mask
--- NOTE | 2018-04-17 11:28 | PDGENHP ---
History & Physical Chief Complaint: afib Relevant Physical Exam: s1s2 irreg cta ao3 Cardiorespiratory Assessment: afib post maze for justyna cv
--- NOTE | 2018-04-17 11:48 | POSTANESTH ---
Post Anesthetic Evaluation Cardiovascular Status: Normal, Stable Respiratory Status: Normal, Stable Level of Consciousness/Mental Status: Moderately Sleepy Pain Control: Adequate, Prn Tx Ordered Nausea/Vomiting Control: Adequate, Prn Tx Ordered Complications Possibly Related to Anesthesia: None Noted
[2018-04-17] MEDS ORDERED: ENOXAPARIN 100 MG/ML SYR SC ONE (11:55)
--- NOTE | 2018-04-17 11:55 | PDTEE1 ---
MARSHALL Cardioversion Procedure Procedure: electrical cardioversion, transesophageal echo Indications: atrial fibrillation Consent: signed and in chart Anticoagulation: warfarin Procedural Details: Pads were placed in anterior-posterior position. MARSHALL probe was advanced and standard images obtained. There is no evidence of left atrial or left atrial appendage thrombus. Synchronized cardioversion attempt #1: 200J Results: normal sinus rhythm Conclusions: successful MARSHALL cardioversion (no atrial rhythm, a paced 100% of time post cv) Patient Problems: Problems Problem Status Onset Acute blood loss anemia Acute S/P aortic valve replacement Acute S/P aortic aneurysm repair Acute Status post ablation of atrial fibrillation Acute Chronic anticoagulation Chronic Ascending aortic aneurysm Chronic Bicuspid aortic valve Chronic Aortic valve stenosis with insufficiency Chronic Atrial fibrillation and flutter Chronic
--- NOTE | 2018-04-18 16:27 | CPEKG ---
Test Reason : OPEN Blood Pressure : / mmHG Vent. Rate : 112 BPM Atrial Rate : 000 BPM P-R Int : 460 ms QRS Dur : 086 ms QT Int : 381 ms P-R-T Axes : 000 046 238 degrees QTc Int : 520 ms A-V dual-paced complexes w/ some inhibition Atrial fibrillation Confirmed by Giancarlo Sky ([id number]) on 04/18/2018 4:27:34 PM Referred By: Confirmed By:Giancarlo Sky
--- NOTE | 2018-04-18 16:29 | CPEKG ---
Test Reason : OPEN Blood Pressure : / mmHG Vent. Rate : 080 BPM Atrial Rate : 080 BPM P-R Int : 129 ms QRS Dur : 091 ms QT Int : 441 ms P-R-T Axes : 213 029 244 degrees QTc Int : 509 ms Atrial-paced rhythm Repol abnrm suggests ischemia, anterolateral Prolonged QT interval Atrial pacing is new in comparison to prior which noted atrial fibrillation Confirmed by Giancarlo Sky ([id number]) on 04/18/2018 4:29:09 PM Referred By: Confirmed By:Giancarlo Sky
== END 2018-04-17 13:03 | disposition home or self-care (01) ==
LOC: FCATH 10:14
PROVIDERS: ATTEND Internal Medicine Cardiovascular Disease
PROC: B245ZZ4 Ultrasonography of Left Heart, Transesophageal (ICD-10-PCS; principal; 2018-04-17)
PROC: 5A2204Z Restoration of Cardiac Rhythm, Single (ICD-10-PCS; principal; 2018-04-17)
DX: I48.91 Unspecified atrial fibrillation (principal); Z79.01 Long term (current) use of anticoagulants
CPT/HCPCS: J0461; J1650; J2250; J2704

== ENCOUNTER → 2018-04-23 | Outpatient (CLI) | payer OTHER | LOC: FIMAGING 10:14 | PROVIDERS: ATTEND Thoracic Surgery (Cardiothoracic Vascular Surgery) | DX: J90 Pleural effusion, not elsewhere classified (principal); Z98.890 Other specified postprocedural states ==

== ENCOUNTER 2018-05-01 10:24 | Day surgery (SDC) | payer OTHER ==
[2018-05-01] MEDS ORDERED: BENZOCAINE UNIT DOSE SPRAY HURRICAINE MM ONE (10:29)
[2018-05-01] MEDS ORDERED: fentaNYL 100 MCG/2 ML INJ IVP ONE (10:29)
[2018-05-01] MEDS ORDERED: ATROPINE SULFATE 1 MG/10 ML SYR IVP ONE (10:29)
[2018-05-01] MEDS ORDERED: MIDAZOLAM 2 MG/2 ML VIAL IVP ONE (10:29)
[2018-05-01] MEDS ORDERED: NS 500 ML IV ONE (10:29)
[2018-05-01 11:17] LABS: INR 2.29 (0.83-1.16); PROTIME(PATIENT) 25.2 SEC (12.0-15.0)
--- NOTE | 2018-05-01 11:29 | PDGENHP ---
History & Physical Chief Complaint: A-fib History of Present Illness: A-fib s/p recent maze procedure. Relevant Physical Exam: Dual-chamber PPM, device interrogation demonstrates 100 % a-fib burden since 04/08. Respiratory exam CTA, A&Ox3. BLE edema. Cardiorespiratory Assessment: Cardioversion today.
--- NOTE | 2018-05-01 11:36 | PDANEPAE ---
ANE History of Present Illness a flutter s/f D/C CV ANE Past Medical History - Cardiovascular History Hx Hypertension: No Hx Arrhythmias: Yes Hx Chest Pain: No Hx Coronary Artery / Peripheral Vascular Disease: No Hx CHF / Valvular Disease: Yes Hx Palpitations: No Cardiovascular History Comment: aorta aneurysm. afib. bicuspid aortic valve. hx of cardioversions x2. hx of cardiac ablations x2. followed by [facility] - Pulmonary History Hx COPD: No Hx Asthma/Reactive Airway Disease: No Hx Recent Upper Respiratory Infection: No Hx Oxygen in Use at Home: No Hx Sleep Apnea: Yes Pulmonary History Comment: donal positive uses cpap- instructed pt to bring to hospital - Neurologic History Hx Cerebrovascular Accident: No Hx Seizures: No Hx Dementia: No - Endocrine History Hx Diabetes: No - Renal History Hx Renal Disorders: No - Liver History Hx Hepatic Disorders: No - Neurological & Psychiatric Hx Hx Neurological and Psychiatric Disorders: No - Cancer History Hx Cancer: Yes Cancer History Comment: testicular ca- removal of testicle 8 weeks of radiation 2002 - Congenital Disorder History Hx Congenital Disorders: No - GI History Hx Gastrointestinal Disorders: No - Other Health History Other Health History: wears glasses - Chronic Pain History Chronic Pain: No - Surgical History Prior Surgeries: cardioversion x2- last being 09/17/13. right ankle surgery. bilateral RTC repairs. cardiac ablations x2. bilateral bunionectomies. testicle removed d/t ca 2002 ANE Review of Systems Review of Systems: - Exercise capacity Exercise capacity: >=4 METS ANE Patient History - Allergies Allergies/Adverse Reactions: No Known Allergies Allergy (Verified 02/08/18 11:50) - Home Medications Home medications: home medication list seen and reviewed Home Medications: Atorvastatin Calcium [Lipitor 20 mg (*)] 20 mg PO DAILY 02/08/18 [Last Taken 03/12 08:00] Herbals/Supplements -Info Only 1 ea PO DAILY 03/27/18 [Last Taken 03/29/18 08:00 ] Warfarin Sodium [Coumadin 2.5MG (*)] 2.5 mg PO MOWEFRSA 03/27/18 [Last Taken 09/09 08:00] Warfarin Sodium [Coumadin 5MG (*)] 5 mg PO SUTUTH 03/27/18 [Last Taken 03/26/18 08:00] - NPO status NPO Status: no food or drink >8 hours - Anes Hx Anes Hx: no prior problems - Smoking Hx Smoking Status: Never smoked - Alcohol Use Alcohol Use: Occasionally - Family Anes Hx Family Anes Hx: none Family Hx Anesthesia Complications: none ANE Labs/Vital Signs - Labs Result Diagrams: 05/01/18 10:55 - Vital Signs Height: 178 cm Weight: 103.9 kg ANE Physical Exam - Airway Mallampati Score: Class 2 - Pulmonary Pulmonary: no respiratory distress - Cardiovascular Cardiovascular: regular rate and rhythym - ASA Status ASA Status: II ANE Anesthesia Plan Anesthesia Plan: GA with mask Total IV Anesthesia: Yes
[2018-05-01] MEDS ORDERED: PROPOFOL 200 MG/20 ML VIAL ONE (11:37)
[2018-05-01] MEDS ORDERED: LIDOCAINE 2% 100 MG/5 ML SYR ONE (11:37)
--- NOTE | 2018-05-01 11:50 | PDCARD ---
Cardioversion Procedure Procedure: electrical cardioversion Indications: other (atrial tachycardia) Consent: signed and in chart Anticoagulation: warfarin Procedural Details: Pads were placed in anterior-posterior position. Synchronized cardioversion attempt #1: 200J Results: normal sinus rhythm Conclusions: successful cardioversion (Patient has edema, BNP is 1080, will start lasix 40 mg daily and potassium 10 mEQ daily, will recheck labs in 2 weeks ) Patient Problems: Problems Problem Status Onset Acute blood loss anemia Acute S/P aortic valve replacement Acute S/P aortic aneurysm repair Acute Status post ablation of atrial fibrillation Acute Chronic anticoagulation Chronic Ascending aortic aneurysm Chronic Bicuspid aortic valve Chronic Aortic valve stenosis with insufficiency Chronic Atrial fibrillation and flutter Chronic
--- NOTE | 2018-05-01 11:55 | PDGENHP ---
History & Physical Chief Complaint: symptomatic at Relevant Physical Exam: s1s2 irreg ct ao3 Cardiorespiratory Assessment: for cardioversion. inr therapeutic x 2
--- NOTE | 2018-05-01 13:47 | POSTANESTH ---
Post Anesthetic Evaluation Cardiovascular Status: Normal, Stable Respiratory Status: Normal, Stable Level of Consciousness/Mental Status: Can Participate in Eval Pain Control: Adequate, Prn Tx Ordered Nausea/Vomiting Control: Adequate, Prn Tx Ordered Complications Possibly Related to Anesthesia: None Noted
--- NOTE | 2018-05-01 23:01 | CPEKG ---
Test Reason : OPEN Blood Pressure : / mmHG Vent. Rate : 099 BPM Atrial Rate : 000 BPM P-R Int : 162 ms QRS Dur : 095 ms QT Int : 382 ms P-R-T Axes : 000 038 246 degrees QTc Int : 491 ms A-V dual-paced complexes with ventricular sensed and atrial paced complex Confirmed by Dean Gallardo ([id number]) on 05/01/2018 11:01:10 PM Referred By: Confirmed By:Dean Gallardo
--- NOTE | 2018-05-01 23:03 | CPEKG ---
Test Reason : OPEN Blood Pressure : / mmHG Vent. Rate : 080 BPM Atrial Rate : 081 BPM P-R Int : 114 ms QRS Dur : 091 ms QT Int : 398 ms P-R-T Axes : 097 027 259 degrees QTc Int : 460 ms Atrial-paced rhythm Abnormal T, consider ischemia Confirmed by Dean Gallardo ([id number]) on 05/01/2018 11:02:47 PM Referred By: Confirmed By:Dean Gallardo
== END 2018-05-01 13:00 | disposition home or self-care (01) ==
LOC: FCATH 10:24
PROVIDERS: ATTEND Internal Medicine Cardiovascular Disease
PROC: 5A2204Z Restoration of Cardiac Rhythm, Single (ICD-10-PCS; principal; 2018-05-01)
DX: I47.1 Supraventricular tachycardia (principal)
CPT/HCPCS: J0461; J2001; J2704

== ENCOUNTER → 2018-05-21 | Outpatient (CLI) | payer OTHER | LOC: FIMAGING 13:22 | PROVIDERS: ATTEND Thoracic Surgery (Cardiothoracic Vascular Surgery) | DX: Z48.812 Encounter for surgical aftercare following surgery on the circulatory system (principal); R91.8 Other nonspecific abnormal finding of lung field; Z86.79 Personal history of other diseases of the circulatory system; Z95.2 Presence of prosthetic heart valve; Z98.890 Other specified postprocedural states ==

== ENCOUNTER → 2018-05-27 | Outpatient (CLI) | payer OTHER | LOC: FIMAGING 12:27 | PROVIDERS: ATTEND Thoracic Surgery (Cardiothoracic Vascular Surgery) | DX: Z98.890 Other specified postprocedural states (principal); K80.20 Calculus of gallbladder without cholecystitis without obstruction; Z95.2 Presence of prosthetic heart valve ==

== ENCOUNTER 2018-06-05 05:31 | Inpatient (IN) | payer OTHER ==
[2018-06-05] MEDS ORDERED: ceFAZolin 2 GM/DEXTROSE 100 ML IV ONE (06:02)
[2018-06-05] MEDS ORDERED: LIDOCAINE 1% 2 ML INJ ID PRN (06:03)
[2018-06-05] MEDS ORDERED: LR 1,000 ML IV ONE (06:03)
[2018-06-05] MEDS ORDERED: BUPIVACAINE/EPI 0.25% 30 ML SDV ONE (06:50)
[2018-06-05] MEDS ORDERED: MIDAZOLAM 2 MG/2 ML VIAL IVP ONE (06:58)
--- NOTE | 2018-06-05 07:00 | PDANEPAE ---
ANE History of Present Illness sternal re-wiring ANE Past Medical History - Cardiovascular History Hx Hypertension: No Hx Arrhythmias: Yes Hx Chest Pain: No Hx Coronary Artery / Peripheral Vascular Disease: No Hx CHF / Valvular Disease: Yes Hx Palpitations: No Cardiovascular History Comment: aorta aneurysm. afib. bicuspid aortic valve. hx of cardioversions x2. hx of cardiac ablations x2. followed by [facility] - Pulmonary History Hx COPD: No Hx Asthma/Reactive Airway Disease: No Hx Recent Upper Respiratory Infection: No Hx Oxygen in Use at Home: No Hx Sleep Apnea: Yes Pulmonary History Comment: donal positive uses cpap- instructed pt to bring to hospital - Neurologic History Hx Cerebrovascular Accident: No Hx Seizures: No Hx Dementia: No - Endocrine History Hx Diabetes: No - Renal History Hx Renal Disorders: No - Liver History Hx Hepatic Disorders: No - Neurological & Psychiatric Hx Hx Neurological and Psychiatric Disorders: No - Cancer History Hx Cancer: Yes Cancer History Comment: testicular ca- removal of testicle 8 weeks of radiation 2002 - Congenital Disorder History Hx Congenital Disorders: No - GI History Hx Gastrointestinal Disorders: No - Other Health History Other Health History: wears glasses - Chronic Pain History Chronic Pain: No - Surgical History Prior Surgeries: cardioversion x2- last being 09/17/13. right ankle surgery. bilateral RTC repairs. cardiac ablations x2. bilateral bunionectomies. testicle removed d/t ca 2002 ANE Review of Systems Review of Systems: - Exercise capacity Exercise capacity: >=4 METS - Pacemaker Pacemaker Radiological Technologist: Biotronik Pacemaker Model: Edora 8 DR-T Date Pacemaker Last Checked: 05/11/18 ANE Patient History - Allergies Allergies/Adverse Reactions: No Known Allergies Allergy (Verified 02/08/18 11:50) - Home Medications Home medications: home medication list seen and reviewed Home Medications: Atorvastatin Calcium [Lipitor 20 mg (*)] 20 mg PO DAILY 02/08/18 [Last Taken 05/12] Herbals/Supplements -Info Only 1 ea PO DAILY 03/27/18 [Last Taken 06/02/18] Warfarin Sodium [Coumadin 2.5MG (*)] 2.5 mg PO MOWEFRSA 03/27/18 [Last Taken 12/10] Warfarin Sodium [Coumadin 5MG (*)] 5 mg PO SUTUTH 03/27/18 [Last Taken 05/30/18] Amiodarone HCl [Pacerone] 100 mg PO DAILY 05/31/18 [Last Taken 06/04/18] Furosemide [Lasix 40 MG (*)] 40 mg PO DAILY 05/31/18 [Last Taken 06/04/18] Metoprolol Tartrate [Lopressor 25 mg (*)] 25 mg PO BID 05/31/18 [Last Taken 05/12] Multivitamins [Multivitamin (*)] 1 each PO DAILY 05/31/18 [Last Taken 06/04/18] Potassium Cl [Klor-Con 20 meq (*)] 10 meq PO DAILY 05/31/18 [Last Taken 06/04/18 ] Lovenox 100 MG (*) 06/05/18 [Last Taken 06/04/18 08:00] - NPO status NPO Status: no food or drink >8 hours NPO Since - Liquids (Date): 06/04/18 NPO Since - Liquids (Time): 19:00 NPO Since - Solids (Date): 06/04/18 NPO Since - Solids (Time): 19:00 - Anes Hx Anes Hx: no prior problems - Smoking Hx Smoking Status: Never smoked - Alcohol Use Alcohol Use: Occasionally - Family Anes Hx Family Anes Hx: none Family Hx Anesthesia Complications: none ANE Labs/Vital Signs - Vital Signs Blood Pressure: 146/92 Heart Rate: 76 Respiratory Rate: 14 O2 Sat (%): 98 Height: 177.8 cm Weight: 99.79 kg ANE Physical Exam - Airway Neck exam: FROM Mallampati Score: Class 2 Mouth exam: normal dental/mouth exam - Pulmonary Pulmonary: no respiratory distress - Cardiovascular Cardiovascular: regular rate and rhythym - ASA Status ASA Status: III ANE Anesthesia Plan Anesthesia Plan: general endotracheal anesthesia
[2018-06-05] MEDS ORDERED: fentaNYL 100 MCG/2 ML INJ ONE ×3 (07:12→10:03)
[2018-06-05] MEDS ORDERED: LIDOCAINE 2% 100 MG/5 ML SYR ONE (07:12)
[2018-06-05] MEDS ORDERED: DEXAMETHASONE 4 MG/ML VIAL ONE (07:12)
[2018-06-05] MEDS ORDERED: ROCURONIUM 50 MG/5 ML VIAL ONE ×2 (07:12→08:31)
[2018-06-05] MEDS ORDERED: ONDANSETRON 4 MG/2 ML VIAL ONE (07:12)
[2018-06-05] MEDS ORDERED: PROPOFOL/EMULSION 500 MG/50 ML BOTTLE IV ONE (07:12)
[2018-06-05] MEDS ORDERED: KETOROLAC 30 MG/1 ML SDV ONE (07:35)
[2018-06-05] MEDS ORDERED: VANCOMYCIN HCL/NORMAL SALINE 250 ML IV ONE (07:45)
[2018-06-05] MEDS ORDERED: VANCOMYCIN 1.5 GM in NS 250 ML IV ONE (08:00)
[2018-06-05] MEDS ORDERED: IBUPROFEN 600 MG TAB PO PRN (08:16)
[2018-06-05] MEDS ORDERED: PROPOFOL 200 MG/20 ML VIAL ONE (08:25)
[2018-06-05] MEDS ORDERED: Herbals/Supplements -Info Only PO SCH (09:00)
[2018-06-05] MEDS ORDERED: PHENYLEPHRINE HCL 100 MCG/ML SYR IVP PRN (09:07)
[2018-06-05] MEDS ORDERED: PROMETHAZINE HCL 25 MG/ML INJ IVP PRN (09:07)
[2018-06-05] MEDS ORDERED: ALBUTEROL 3 ML DEYVIAL IH PRN (09:07)
[2018-06-05] MEDS ORDERED: oxyCODONE IR 5 MG TAB PO PRN (09:07)
[2018-06-05] MEDS ORDERED: LABETALOL HCL 20 MG/4 ML INJ IVP PRN (09:07)
[2018-06-05] MEDS ORDERED: DEXAMETHASONE 4 MG/ML VIAL IVP PRN (09:07)
[2018-06-05] MEDS ORDERED: ONDANSETRON 4 MG/2 ML VIAL IVP PRN (09:07)
[2018-06-05] MEDS ORDERED: ACETAMINOPHEN 500 MG TAB PO PRN (09:07)
[2018-06-05] MEDS ORDERED: NALOXONE HCL 0.4 MG/ML INJ IVP PRN (09:07)
[2018-06-05] MEDS ORDERED: HYDROCODONE/APAP 5/325 TAB PO PRN (09:07)
[2018-06-05] MEDS ORDERED: MINERAL OIL 10 ML VIAL ONE (09:07)
[2018-06-05] MEDS ORDERED: MEPERIDINE 25 MG/0.5 ML AMP IVP PRN (09:07)
[2018-06-05] MEDS ORDERED: METOCLOPRAMIDE 10 MG/2 ML VIAL IVP PRN ×2 (09:07→09:39)
[2018-06-05] MEDS ORDERED: LR 500 ML IV PRN (09:07)
[2018-06-05] MEDS ORDERED: SUGAMMADEX SODIUM 200 MG/2 ML VIAL IVP ONE (09:24)
[2018-06-05] MEDS ORDERED: METOCLOPRAMIDE 10 MG TAB PO PRN (09:39)
[2018-06-05] MEDS: fentaNYL 100 MCG/2 ML INJ IVP PRN ×2 (10:08→10:21)
--- NOTE | 2018-06-05 10:43 | PDMN ---
Medical Necessity Medical necessity: Pt meets inpt criteria per MD order and Thoracic Surgery or Procedure GRG, Sternal Rewire, Medicare inpt only list. 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
[2018-06-05] MEDS: ATORVASTATIN CALCIUM 20 MG TAB PO SCH (12:54)
[2018-06-05] MEDS: POTASSIUM CL 20 MEQ TAB PO SCH (12:54)
[2018-06-05] MEDS: AMIODARONE HCL 200 MG TAB PO SCH (12:55)
[2018-06-05] MEDS: oxyCODONE IR 5 MG TAB PO PRN ×3 (12:57→22:33)
[2018-06-05] MEDS: FUROSEMIDE 40 MG TAB PO SCH (12:57)
[2018-06-05] MEDS: METOPROLOL TARTRATE 25 MG TAB PO SCH ×2 (12:59→20:39)
[2018-06-05] MEDS: ACETAMINOPHEN 325 MG TAB PO SCH ×3 (13:01→20:38)
[2018-06-05] MEDS: KETOROLAC 30 MG/1 ML SDV IVP PRN ×2 (13:02→23:53)
[2018-06-05] MEDS: MULTIVITAMINS 1 EACH TAB PO SCH (13:05)
--- NOTE | 2018-06-05 13:32 | GOP ---
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 PROCEDURE PERFORMED: Repeat median sternotomy with extensive debridement and sternal rewire. FINDINGS: Patient was recovering uneventfully from aortic valve and ascending aorta replacement, as well as a Hernandez Maze 4. He several weeks ago fell off his porch onto his shoulder quite a distance and felt something pop in his sternum. Since that time, he has had clicking and discomfort. He has had no fevers, chills, or drainage. Because of the discomfort and sternal nonunion on CT, he was consen misty for repeat sternotomy and debridement with rewiring. DESCRIPTION OF PROCEDURE: He was consented, brought to the operating room, intubated. Monitoring li jeff were placed. He was prepped and draped in sterile classical manner. The previous incision was excised. We then incised down to the sternal plate and found a collection of milky colored fluid, which could be bone wax, but cultures were obtained and immediate Gram stain was obtained. Gram stain showed no organisms. Cultures are pending. We then debrided all the tissu e in contact with that pocket of fluid on the anterior sternum. We then removed all sternal bands an d wires. There was evidence of a transverse fracture where he had fallen and a small amount of nonun ion, although that was not particularly significant. We then debrided after reopening the sternum, s eparating cardiac structures. We then opened both pleura, controlled bleeding with cautery. It was quite sanguinous due to its early inflammatory nature. We then debrided the edges of the sternum bar k to healthy bleeding bone. We did a Robicsek weave bilaterally and then closed the wire with sterna l wires and zip tie bands. Bilateral mobilization of the subcutaneous tissues down to the pectoralis was done bilaterally in order to close the wound over tension. Again, all fat and tissue involved i n the early fluid collection were excised and debrided. We then closed that over 2 pleural, 1 medias tinal drain, and 1 subcu drain. The wound was closed in standard fashion. Patient was returned to [facility] in stable condition. /[id number]/MODL
[2018-06-05] MEDS ORDERED: WARFARIN SODIUM 2.5 MG TAB PO SCH (16:00)
[2018-06-05] MEDS: VANCOMYCIN 1.5 GM in D5W 250 ML IV SCH (20:40)
[2018-06-06 04:36] LABS: INR 1.23 (0.83-1.16); PROTIME(PATIENT) 15.7 SEC (12.0-15.0)
[2018-06-06] MEDS: oxyCODONE IR 5 MG TAB PO PRN (05:04)
[2018-06-06] MEDS: HEPARIN 5,000 UNIT/0.5 ML INJ SC SCH ×3 (05:10→21:11)
[2018-06-06] MEDS: ACETAMINOPHEN 325 MG TAB PO SCH ×2 (05:11→13:02)
--- NOTE | 2018-06-06 07:40 | SOAPPROG ---
EMILY Progress Note Assessment/Plan: POD #1: Repeat median sternotomy with extensive debridement and sternal rewiring with b/l Robicsek weave 04/03/18: (Ligia) AVR with #23 Inspiris Resilia bioprosthesis, asc ao replacement with #23 Hemashield graft, CM IV with AtriClip exclusion LEYDI 04/08/16: (Javier) Implantation of A/V PPM Traumatic sternal non-union s/p debridement and sternal rewiring - ANGELINA drains x 3 (b/l pleural, one mediastinal) to be placed on bulb suction - SQ ANGELINA drain to be removed today - Continue pain mgmt Sternal fluid collection concerning for infection - Gram stain negative - Cultures pending - Continue Vancomycin, duration as per Dr. Strong Acute post-op blood loss anemia - Stable without the need for BP transfusions h/o AVR, asc ao replacement - Stable h/o CM IV, A/V PPM - Continue BB (length to be determined by Dr. Herrera) - Continue Amiodarone (total of 3 months from CM IV as per Dr. Herrera) - Coumadin to restart today DVT prophylaxis - SCDs/heparin SQ Subjective: Pt c/o appropriate chest pain. Denies SOB. Objective: Vital Signs Temp Pulse Resp BP Pulse Ox 36.5 C 70 15 104/59 L 97 06/06/18 07:09 06/06/18 07:09 06/06/18 07:09 06/06/18 07:09 06/06/18 07:09 Microbiology 06/05/18 08:00 Gram Stain - Final Chest - Anaerobic Tube/Swab Laboratory Results 06/06/18 04:04 06/06/18 04:04 06/05/18 06/06/18 06/07/18 05:59 05:59 05:59 Intake Total 2125 Output Total 2300 Balance -175 PT 15.7 SEC (12.0-15.0) H 06/06/18 04:04 INR 1.23 (0.83-1.16) H 06/06/18 04:04 ICD10 Worksheet Patient Problems: Problems Problem Status Onset Acute blood loss anemia Acute S/P aortic aneurysm repair Acute S/P aortic valve replacement Acute Status post ablation of atrial fibrillation Acute Aortic valve stenosis with insufficiency Chronic Ascending aortic aneurysm Chronic Atrial fibrillation and flutter Chronic Bicuspid aortic valve Chronic Chronic anticoagulation Chronic
[2018-06-06] MEDS: AMIODARONE HCL 200 MG TAB PO SCH (08:14)
[2018-06-06] MEDS: ATORVASTATIN CALCIUM 20 MG TAB PO SCH (08:15)
[2018-06-06] MEDS: METOPROLOL TARTRATE 25 MG TAB PO SCH ×2 (08:15→21:11)
[2018-06-06] MEDS: POTASSIUM CL 20 MEQ TAB PO SCH (08:16)
[2018-06-06] MEDS: MULTIVITAMINS 1 EACH TAB PO SCH (08:16)
[2018-06-06] MEDS: FUROSEMIDE 40 MG TAB PO SCH (08:17)
[2018-06-06] MEDS: VANCOMYCIN 1.5 GM in D5W 250 ML IV SCH ×2 (08:23→21:10)
[2018-06-06] MEDS: KETOROLAC 30 MG/1 ML SDV IVP PRN (08:24)
--- NOTE | 2018-06-06 10:21 | ASMTCMCOM ---
CM Note CM Note Notes: 06/06/2018 Case Management Note Discussed with Jian LU this morning. Discussed with RN. Pt admitted for repeat median sternotomy with extensive debridement and sternal rewiring. Pt currently on IV antibiotics, awaiting cultures. There are no therapies ordered at this time. Anticipating d/c tomorrow without any needs. Pt is . Case Management d/c poc: independent with follow up as directed. Case Management available if needs change. Date Signed: 06/06/2018 10:21 AM Electronically Signed By:Lainey Amin RN
[2018-06-06] MEDS ORDERED: ACETAMINOPHEN 325 MG TAB PO PRN (13:25)
[2018-06-06] MEDS ORDERED: WARFARIN SODIUM 5 MG TAB PO SCH ×2 (16:00)
[2018-06-07 04:35] LABS: INR 1.21 (0.83-1.16); PROTIME(PATIENT) 15.5 SEC (12.0-15.0)
[2018-06-07] MEDS: HEPARIN 5,000 UNIT/0.5 ML INJ SC SCH ×2 (05:47→14:46)
--- NOTE | 2018-06-07 07:57 | SOAPPROG ---
SOAP Progress Note Assessment/Plan: Assessment: POD#2 Repeat median sternotomy with extensive sternal debridement and rewiring with b/l Tk tompkins 04/03/18: (Ligia) AVR#23 Inspiris Resilia bioprosthesis, asc ao replacement#23 Hemashield graft, Hernandez-Maze IV with AtriClip exclusion LEYDI 04/08/16: (Javier) Implantation of A/V PPM for postop JR; outpt DC CVSN x 2 for rapid AF & AT; to be maintained on amio thru mid Jun 2018 Traumatic sternal non-union - Assoc with sternal fluid collection concerning for infection and empirically started on IV Vanco. Gram stain negative. Prelim cx NG. ID to be consulted re prolonged need/use of Abx. Strict sternal precautions x 6 wks given restabilization. All drains out yest. Pain adequately controlled. Acute post-op blood loss anemia - Stable. No transfusions needed. VTE prophylaxis with SCDs, coumadin and Sq hep until INR > 1.7 Presence of bioprosthetic AV - Low threshold for Abx coverage. Presence of dual chamber PPM s/p Maze - Postop rhythm predominantly APaced. HR and rhythm control with amio and BB as per Dr Herrera. Antithrombotic prophylaxis with Coumadin as per Maze protocol. Plan: ID/Ruchi to see later today. Cont coumadin as per home regimen. Stop Lasix. Dispo - Home when cleared by ID. 06/07/18 07:48 Subjective: Feels well. Improved comfort, mobility and ambulatory capacity with tubes out. Hopeful for home soon. Objective: Vital Signs Temp Pulse Resp BP Pulse Ox 37.0 C 75 16 97/61 L 91 L 06/07/18 04:00 06/07/18 04:00 06/07/18 04:00 06/07/18 04:00 06/07/18 04:00 Microbiology 06/05/18 08:00 Gram Stain - Final Chest - Anaerobic Tube/Swab Laboratory Results 06/06/18 04:04 06/06/18 04:04 06/06/18 06/07/18 06/08/18 05:59 05:59 05:59 Intake Total 2125 1365 Output Total 2300 1950 Balance -175 -585 PT 15.5 SEC (12.0-15.0) H 06/07/18 04:07 INR 1.21 (0.83-1.16) H 06/07/18 04:07 HR and rhythm stable. Negative fluid balance with downtrending SBPs. Off O2. Cx NGTD. Physical Exam - Physical Exam General Appearance: alert, no apparent distress Respiratory: lungs clear Cardiac/Chest: regular rate, rhythm (w occ premature beat), other (Sternotomy CDI. CT dressing CDI.) Abdomen: non-tender, soft Skin: warm/dry Extremities: other (no visible edema) ICD10 Worksheet Patient Problems: Problems Problem Status Onset Acute blood loss anemia Acute S/P aortic aneurysm repair Acute S/P aortic valve replacement Acute Status post ablation of atrial fibrillation Acute Aortic valve stenosis with insufficiency Chronic Ascending aortic aneurysm Chronic Atrial fibrillation and flutter Chronic Bicuspid aortic valve Chronic Chronic anticoagulation Chronic
[2018-06-07] MEDS: POTASSIUM CL 20 MEQ TAB PO SCH (08:09)
[2018-06-07] MEDS: FUROSEMIDE 40 MG TAB PO SCH (08:10)
[2018-06-07] MEDS: MULTIVITAMINS 1 EACH TAB PO SCH (08:10)
[2018-06-07] MEDS: AMIODARONE HCL 200 MG TAB PO SCH (08:13)
[2018-06-07] MEDS: ATORVASTATIN CALCIUM 20 MG TAB PO SCH (08:13)
[2018-06-07] MEDS: METOPROLOL TARTRATE 25 MG TAB PO SCH (08:13)
[2018-06-07] MEDS: VANCOMYCIN 1.5 GM in D5W 250 ML IV SCH (08:14)
[2018-06-07 11:35] VITALS: BP 102/66
[2018-06-07] MEDS ORDERED: POLYETHYLENE GLYCOL 3350 17 GM PKT PO PRN (12:00)
[2018-06-07] MEDS ORDERED: SENNOSIDES/DOCUSATE SODIUM TAB PO PRN (12:00)
[2018-06-07] MEDS ORDERED: WARFARIN SODIUM 2.5 MG TAB PO SCH (16:00)
--- NOTE | 2018-06-07 16:17 | ASDISCHSUM ---
Discharge Information Plan Status:Home with No Needs Medically Cleared to Leave:06/06/2018 Discharge Date:06/06/2018 CM D/C Disposition:Home, Routine, Self-Care ADT D/C Disposition:Home, Routine, Self-Care Projected Discharge Date:06/06/2018 Transportation at D/C:Family Discharge Delay Reason: Follow-Up Date:06/06/2018 Discharge Slot: Final Diagnosis: Placement Information Patient Contact Information Contact Name:TANNER Relationship: Address:[address] [place] [address] City:[facility] Phone: [facility]/Zip Code:[place] [address] Email: Financial Information Financial Class:Nazar Primary [facility] Desc[facility] Primary Plan Number:[id number] Secondary Plan Desc: Secondary Plan Number: Assessment Information LACE LACE Length of stay for Answers: 2 days current admission Acuity / Level of Answers: Yes Care: Did the patient have an inpatient admission? Comorbidities - select Answers: Congestive heart failure all that apply Other Notes: AFib; Aortic aneurysm # of Emergency department Answers: 0 visits in the last 6 months Score: 8 Date Signed: 06/07/2018 04:14 PM Electronically Signed By:Lainey Amin RN [facility] CM Progress Note CM Note CM Note Notes: 06/06/2018 Case Management Note Discussed with Jian LU this morning. Discussed with RN. Pt admitted for repeat median sternotomy with extensive debridement and sternal rewiring. Pt currently on IV antibiotics, awaiting cultures. There are no therapies ordered at this time. Anticipating d/c tomorrow without any needs. Pt is . Case Management d/c poc: independent with follow up as directed. Case Management available if needs change. Date Signed: 06/06/2018 10:21 AM Electronically Signed By:Lainey Amin RN Case Management Discharge Plan Note Case Management Discharge Discharge Order Complete? Answers: Yes Patient to Obtain Answers: via Family Medications Transportation Arranged Answers: Family/Friends Discharge Comments Notes: 06/07/2018 Case Management Note Pt to discharge independently without any needs from case management. Date Signed: 06/07/2018 04:16 PM Electronically Signed By:Lainey Amin RN Intervention Information Intervention Type:*Incorrect Registration Date of Service:06/05/2018 10:47 AM Patient Type:Inpatient Staff Member:GERA Goodman Patricia Hours: Discipline: Severity: Comment:
--- NOTE | 2018-06-07 17:26 | PDDCSUM ---
Discharge Summary Discharge Summary: DATE OF ADMISSION: 06/05/18 DATE OF DISCHARGE: 06/07/18 DISPOSITION: Home, self-care PRINCIPAL ADMISSION DIAGNOSIS: Sternal nonunion PRINCIPAL DISCHARGE DIAGNOSIS: Status post sternal debridement and restabilization with Robicsek weave HISTORY OF PRESENT ILLNESS: 57 yo male with symptomatic sternal instability secondary to a mechanical fall onto his left side at the 5 week indra of recovery from open heart surgery, admitted for an elective sternal exploration and rewire. PERTINENT PAST MEDICAL HISTORY: , aneurysmal asc aorta and chronic AF treated with tissue AVR, ascending aortic replacement and Hernandez-Maze IV procedure on 04/03/18, [facility]. Procedure complicated by junctional bradycardia necessitating placement of a dual chamber Biotronik pacemaker, Javier [facility]. Electrically cardioverted twice for rapid AF and AT. Chronic anticoagulation with Coumadin. MEDICATIONS ON ADMISSION: Coumadin 5 mg Sun, Tue, Christine and 2.5 mg rest of week (bridged with Lovenox 100mg SQ BID prior to surgery), Amiodarone 100 mg daily, Metoprolol tartrate 25 mg BID , Lasix 40 mg daily, Klor-Con 10 meq daily, Lipitor 20 mg daily, MVI daily, Herbal supplement daily, Ibuprofen 600 mg 4x daily prn sternal discomfort. ALLERGIES/SENSITIVITIES: NKDA CONSULTANTS: Infectious diseases (Ruchi) PROCEDURES/IMAGIN/12 (Ligia): Redo median sternotomy. Extensive sternal debridement. Sternal rewire with bilateral Robicsek weave. ABBREVIATED HOSPITAL COURSE BY ACTIVE PROBLEM LIST: 1. Traumatic sternal nonunion - Assoc with a sternal fluid collection concerning for infection and empirically started on IV Vanco pending culture results. No evidence of bacterial growth by preliminary results and transitioned to a 12 day course of oral Doxy by ID. Dr Hopper to track cultures and alter regimen if late growth noted. Strict sternal precautions x 6 wks. Pain adequately controlled with ibuprofen and tylenol. 2. Acute expected blood loss anemia - Inflamed and friable tissues. No transfusions needed. Reanticoagulated without a LMWH bridge. 3. Presence of bioprosthetic AV - Low threshold for Abx coverage. 4. Presence of dual chamber PPM s/p Maze - Postop rhythm predominantly APaced. Occasional sinus beats. No AF. Amio, BB and coumadin resumed. DISCHARGE CLINICAL INFORMATION: Sternum grossly stable. Sternotomy CDI, sutured, +Dermabond. HR 60s-70s. SBP 100s. SpO2 94% RA. Hgb 9.8, HCT 30.8, Plt 196, INR 1.2 DISCHARGE MEDICATIONS: As on admission with the following adjustments: 1. Discontinue scheduled Lasix/KCl and use prn wt gain > 2 lbs overnoc or progressive edema NEW prescriptions: 1. Doxycycline 100 mg BID x 12 days FOLLOW UP APPOINTMENTS: 1. CV surgery: with Dr Strong at [facility] on 06/11 at 9:15 am. FOLLOW UP TESTING: INR and CXR prior to surgical appointment.
--- NOTE | 2018-06-07 18:20 | GCON ---
INFECTIOUS DISEASE CONSULTATION DATE OF CONSULTATION: 06/07/2018 REFERRING PHYSICIAN: Mike Strong DO REASON FOR CONSULTATION: Query sternal postoperative infection. HISTORY OF PRESENT ILLNESS: 57-year-old male with a past medical history of moderate aortic stenosis and insufficiency with aortic aneurysm, who underwent an aortic valve replacement and aneurysm repai r with postoperative course complicated by bradyarrhythmias requiring pacemaker implantation and was placed on amiodarone and beta ivan for AFib prophylaxis. Patient was admitted from the to e 10 of April and received perioperative cefazolin. No other antibiotics. While at home, thompson ha was feeling well, doing well recovering from his cardiac procedure. He did undergo 2 attempted car dioversions for atrial fibrillation in the interim and went to the dentist on May 20. He took 4 pills of amoxicillin 1 hour prior to his dental cleaning. Approximately week 4 following the proc edure, patient fell on the left side of his shoulder and hip and denied immediate sternal pain, was c ontinuing to do rehab and eventually returned to work. Around week 6 postoperatively, patient starte d to feel fluid around the mid incision and then eventually developed right pectoralis discomfort. T his pain was not severe enough to warrant pain medicines. He had no fevers, chills, night sweats. P luis e underwent a CT scan without contrast on 05/27/2018, which showed post thoracotomy changes with an ununited sternal incision. The left sternal fragment is depressed by approximately 2 mm inferior . There was a tiny complex fluid collection anterior to the right sternal fragment in the upper ches t. In addition, patient also described feeling movement within his sternum. It was elected to heather e his sternum which he underwent on 06/05/2018. In the OR, patient was found to have some milky colo red fluid and cultures were taken at that time. Gram stain was negative and cultures are negative at 48 hours. Patient received perioperative cefazolin and was started on IV vancomycin postoperatively . Postoperatively patient has done well with minimal pain except associated with the chest tubes, wh ich were recently removed. Patient denies any redness or drainage relating to his sternal wound thro ughout the course described above. Patient and his were both interviewed regarding symptoms. Patient does not sit in hot tubs. No steam rooms. No penetrating injury to his sternal wound except the fall described in the HPI. Patient has no history of resistant organisms and it has been years since his last antibiotics. REVIEW OF SYSTEMS: A complete 10-point review of systems was performed and is negative except as men tioned in the HPI. ALLERGIES: NKDA. MEDICATIONS: Vancomycin 1.5 g IV q.12. Coumadin 5 mg Sunday, Sunday, , 2.5 Sunday, , Sunday, Sunday. Lopressor 25 b.i.d. Reglan as needed. Lipitor 20 mg daily. Amiodarone. PAST MEDICAL HISTORY: Obstructive sleep apnea. Remote history of sinusitis, although patient report s it has been years since his last antibiotics. Cardiac history as above. Notably, patient has norm al coronary arteries. SOCIAL HISTORY: He is a former smoker. He is . No alcohol. He works as a project development engineer. He lives in [place]. He grew up in the [place] area. He has 2 cats and a dog. FAMILY HISTORY: Positive for aortic valve disease. PHYSICAL EXAM: BP 102/66, heart rate 74, respiratory rate 18, saturation 94% on room air, temperatur e 36.8. GENERAL: This is a relatively healthy appearing male sitting in bed. No acute distress. H EENT: No conjunctival lesions. Oropharynx: Good dentition. Moist mucous membranes. No ulceration s or exudate. NECK: Supple. CARDIOVASCULAR: Patient seemed to have a regular rate and rhythm with some irregularity. No murmurs. CHEST: Clear to auscultation bilaterally. Midline sternotomy scar with glue in place. No erythema. No tenderness. No swelling. No fluctuance. ABDOMEN: Obese, so ft, nontender. Bowel sounds present. EXTREMITIES: No clubbing, cyanosis, or edema. NEUROLOGIC: H e is moving all 4 extremities equally and alert and oriented x4. SKIN: No rashes. LABORATORY: White count is 15, hematocrit 30, platelets of 196. Patient's white count during his ho spitalization ranged from 15 to 10. His creatinine is 1.1. LFTs: AST 59, ALT 79, albumin 2.9. MICROBIOLOGY: As per HPI. No other microbiology available. IMAGING: As per HPI. ASSESSMENT AND PLAN: This is a 57-year-old male who underwent recent surgical procedure with an aort ic valve replacement, ascending aorta replacement, and ATRA Clip of the left atrial appendage and AV pacemaker placement, who developed fluctuance and movement/dehiscence of his sternum requiring revisi on of the sternum 06/05/2018. Intraoperatively, there was some milky fluid, but interestingly minima l other signs of infection with no erythema, no fever, and minimal pain. Patient does have a mildly elevated white count, although it seems patient tends to have a slightly elevated white count as it w as elevated during his prior hospitalization. 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 1. Would recommend discontinue vancomycin for now and follow on doxycycline 100 twice daily, which w ill cover for most Staphylococcus epidermidis and Corynebacterium, which in the setting of minimal in flammatory clinical signs would be most likely pathogens. Staph aureus and Streptococcus suspect wou ld be more inflammatory. Main gap in coverage of doxycycline is a less dependable strep drug. 2. We will extend hold on cultures to 2 weeks to try to isolate organisms. 3. 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 4. Discharge okay from the ID standpoint and will follow cultures as an outpatient and call patient back to start IV antibiotics if needed. Time was 75 minutes, greater than 50% of time spent with education and counseling of the patient and his and coordination of care with CT surgery team. Thank you for this consultation. /[id number]/MODL
[2018-06-07] MEDS ORDERED: DOXYCYCLINE HYCLATE 100 MG CAP/TAB PO SCH (21:00)
== END 2018-06-07 18:05 | disposition home or self-care (01) | DRG 908 ==
LOC: F2N 05:31 → EDSTATUS 07:15 → OBSVTOIN 09:43 → F2W 10:04
PROVIDERS: ADMIT Thoracic Surgery (Cardiothoracic Vascular Surgery); ATTEND Thoracic Surgery (Cardiothoracic Vascular Surgery)
PROC: 0PQ00ZZ Repair Sternum, Open Approach (ICD-10-PCS; principal; 2018-06-05 07:15)
DX: T81.32XA Disruption of internal operation (surgical) wound, not elsewhere classified, initial encounter (principal); D62 Acute posthemorrhagic anemia; W13.8XXA Fall from, out of or through other building or structure, initial encounter; Z95.3 Presence of xenogenic heart valve; Z95.0 Presence of cardiac pacemaker; Z79.01 Long term (current) use of anticoagulants; G47.33 Obstructive sleep apnea (adult) (pediatric); Z85.47 Personal history of malignant neoplasm of testis
CPT/HCPCS: 86905-90; 99001-90; J0690; J1100; J1644; J1885; J2001; J2250; J2270; J2405; J2704; J3010; J3370

== ENCOUNTER → 2018-06-11 | Outpatient (CLI) | payer OTHER | LOC: FIMAGING 08:15 | PROVIDERS: ATTEND Thoracic Surgery (Cardiothoracic Vascular Surgery) | DX: Z95.2 Presence of prosthetic heart valve (principal); Z95.828 Presence of other vascular implants and grafts; Z95.0 Presence of cardiac pacemaker; Z98.890 Other specified postprocedural states ==